=== PATIENT | female | born 1940 | race Caucasian/White ===

== ENCOUNTER → 2019-12-20 | Day surgery (SDC) | payer MEDICARE, OTHER ==
[2019-12-16 13:53] LABS: BASOPHILS # (AUTO) 0.1 (0.0-0.1); BASOPHILS % 0.9 % (0.0-1.0); EOSINOPHILS # (AUTO) 0.2 (0.0-0.4); EOSINOPHILS % 2.1 % (0.0-6.0); HEMATOCRIT 43.5 % (34.2-44.1); HEMOGLOBIN 13.7 g/dL (12.0-16.0); LYMPHOCYTES # (AUTO) 1.7 (1.0-3.2); LYMPHOCYTES % 19.5 % (18.0-39.1); MEAN CORPUSCULAR HEMOGLOBIN 30.2 pg (28-32); MEAN CORPUSCULAR HGB CONC 31.5 g/dL (31-35); MONOCYTES # (AUTO) 0.7 (0.2-0.8); MONOCYTES % 8.2 % (4.4-11.3); NEUTROPHILS # (AUTO) 5.9 (2.1-6.9); NEUTROPHILS % 69.1 % (38.7-80.0); PLATELET COUNT 339 x10e3/uL (140-360); RED BLOOD COUNT 4.53 x10e6/uL (3.6-5.1); RED CELL DISTRIBUTION WIDTH 14.3 % (11.7-14.4)
--- NOTE | 2019-12-16 14:43 | Diagnostic Imaging Report ---
X-ray chest PA and lateral History: Preop Comparison: None. Findings: Status post CABG procedure. Coronary artery stent visualized. Mediastinal contours otherwise unremarkable. Heart size normal. There is no pleural effusion or pneumothorax. There is left apical pleural thickening with hilar retraction. This raises the possibility of granulomatous disease. Lung husain show changes of COPD but no other focal disease. Visualized skeleton shows osteopenia. Upper abdomen unremarkable. Impression: No acute cardiopulmonary disease. Comparison with old studies to document stability of the left apical lung disease and hilar retraction. A CT of the chest may be performed for further evaluation. Signed by: Linwood Weber MD on 12/16/2019 2:39 PM
[~2019-12-20] MED LIST: ADVAIR 250-501 EACH PO; ATORVASTATIN CA20 MG PO; BUPIVACAINE HCL 0.5% INJ 30 ML VIAL INJ ONE; CEFAZOLIN SOD 1 GM/NS 50ML 100 ML IV ONE; DEXAMETHASONE SOD PHOS INJ 4 MG/ML VIAL ONE; EPHEDRINE SULFATE INJ 50 MG/ML VIAL ONE; FENTANYL CITRATE/PF 100MCG/2 ML INJ ONE; LIDOCAINE HCL 2% LOCAL INJ 5 ML SDV VIAL INJ ONE; LISINOPRIL10 MG PO; METOPROLOL SUCC25 MG PO; NEOSTIGMINE 1 MG/ML 10ML VIAL ONE; ONDANSETRON HCL INJ 2MG/ML 2ML 2 MG/ML VIAL ONE; PLAVIX75 MG PO; PROPOFOL IV EMULSION 10 MG/ML 20 ML VIAL ONE; SEVOFLURANE INHAL SOLN 250 ML PEN BTL ONE; TOPIRAMATE100 MG PO; [UNRECOGNIZED DRUG - OTHER] PO
--- OUTSIDE RECORDS SUMMARY | 2019-12-20 06:40 | XMS REPORT | Summary of Care ---
Author Organization Unknown Address Unknown Phone Unavailable Encounter HQ Maurilio(ASUNCION) [id number] Date(s): 03/15/14 - 03/15/14 [facility] [address] Discharge Disposition: Home Physician Attending: Candy Fierro MD Physician Admitting: Candy Fierro MD Reason for Visit XRAY Problem List Condition Effective Dates Status Health Status Informan t Anxiety(Confirmed) Active Cluster Active headache(Confirmed) COPD(Confirmed) Active Hypertension(Confirm Active ed) Low back Active pain(Confirmed) Lung Active cancer(Confirmed) Macular Active degeneration(Confirm ed) Stented coronary Active artery(Confirmed) Allergies, Adverse Reactions, Alerts Substance Reaction Severity Status NKDA Active Medications No data available for this section Medications Administered During Your Visit No data available for this section Immunizations No data available for this section Social History Social History Type Response Alcohol Use: Never Smoking Status Current every day smoker, T ype: Cigarettes, Exposure to Tobacco Smoke pt smokes, Cigarette Smoking Last 365 Days No, Reg Smoking Cessation Counseling No
--- OUTSIDE RECORDS SUMMARY | 2019-12-20 06:40 | XMS REPORT | Summary of Care ---
Author Author [facility] Outpatient Imaging - [facility] Organization [facility] Outpatient Imaging - [facility] Address Unknown Phone Unavailable Encounter HQ Maurilio(FIN) [id number] Date(s): 11/23/18 - 11/23/18 [facility] Outpatient Imaging - [address] [address] [phone] Discharge Disposition: Home or Self Care Attending Physician: Jw Freeman MD Referring Physician: Jw Freeman MD Vital Signs No data available for this section Problem List Condition Effective Dates Status Health Status Informan t Anxiety(Confirmed) Active Cluster Active headache(Confirmed) COPD(Confirmed) Active Low back Active pain(Confirmed) Lung Active cancer(Confirmed) Macular Active degeneration(Confirm ed) Stented coronary Active artery(Confirmed) Allergies, Adverse Reactions, Alerts Substance Reaction Severity Status NKDA Active Medications No data available for this section Results No data available for this section Immunizations No data available for this section Procedures Procedure Date Related Diagnosis Body Site Status Percutaneous coronary intervention1 11/14/13 Co mpleted Partial hysterectomy Completed Procedure on elbow joint Completed 1stenting of LAD Social History Social History Type Response Alcohol Never Smoking Status Former smoker; Exposure to Tobacco Smoke None; Cigarette Smoking Last 365 Days No; Reg Smoking Cessation Counseli ng No entered on: 11/19/15 Assessment and Plan No data available for this section
--- OUTSIDE RECORDS SUMMARY | 2019-12-20 06:40 | XMS REPORT | Summary of Care ---
Author Author [facility] Outpatient Imaging - [facility] Organization [facility] Outpatient Imaging - [facility] Address Unknown Phone Unavailable Encounter HQ Maurilio(FIN) [id number] Date(s): 07/25/15 - 07/25/15 [facility] Outpatient Imaging - [place] [address] [place] [address] [phone] Discharge Disposition: Home Attending Physician: Bridget Morgan MD Vital Signs No data available for [...] Procedures Procedure Date Related Diagnosis Body Site Percutaneous coronary intervention1 11/14/13 Partial hysterectomy Procedure on elbow joint 1stenting of LAD Social History Social History Type Response Alcohol Never Smoking Status Former smoker; Exposure to Tobacco Smoke None; Cigarette Smoking Last 365 Days No; Reg Smoking Cessation Counseli ng No Assessment and Plan No data available for this section
--- OUTSIDE RECORDS SUMMARY | 2019-12-20 06:40 | XMS REPORT | Summary of Care ---
Author Organization Unknown Address Unknown Phone Unavailable Encounter Dates Location Diagnoses Discharge Providers Disposition 10/17/2013 [facility] Outpatient Imaging - Home Bridget Blackmon [place] 10/17/[address] Reason for Visit 793.11 - SOLITARY PULMON Problem List No data available for this section Allergies, Adverse Reactions, Alerts No data available for this section Medications No data available for this section Medications Administered During Your Visit No data available for this section Immunizations No data available for this section
--- OUTSIDE RECORDS SUMMARY | 2019-12-20 06:40 | XMS REPORT | Summary of Care ---
Author Organization Unknown Address Unknown Phone Unavailable Encounter Dates Location Diagnoses Discharge Providers Disposition 10/07/2013 [facility] Outpatient Imaging - Home Bridget Blackmon [place] 10/07/[address] Reason for Visit 404 - HTN HRT/CHRON K Problem List No data available for this section Allergies, Adverse Reactions, Alerts No data available for this section Medications No data available for this section Medications Administered During Your Visit No data available for this section Immunizations No data available for this section
--- OUTSIDE RECORDS SUMMARY | 2019-12-20 06:40 | XMS REPORT | Summary of Care ---
Author Author [facility] Organization [facility] Address Unknown Phone Unavailable Encounter OLGA LIDIA Thorpe(ASUNCION) [id number] Date(s): 11/19/15 - 11/22/15 [facility] [address] [place] [address]- Discharge Disposition: Home Attending Physician: Jw Freeman MD Admitting Physician: Jw Freeman MD Vital Signs 1 2 3 Most recent to oldest [Reference Range]: 154.94 cm (11/19/15 11:12 PM) 154.94 cm (11/19/15 7:02 PM) Height 98.2 DegF (11/22/15 11:49 AM) 98.6 DegF (11/22/15 7:59 AM) 98.4 DegF (11/22/15 4:00 AM) Temperature Oral [96.4-99.1 DegF] 128/71 mmHg (11/22/15 11:49 AM) 130/63 mmHg (11/22/15 7:59 AM) 125/65 mmHg (11/22/15 4:00 AM) Blood Pressure [90-140/60-90 mmHg] 16 BRMIN (11/22/15 11:49 AM) 16 BRMIN (11/22/15 7:59 AM) 16 BRMIN (11/22/15 6:55 AM) Respiratory Rate [14-20 BRMIN] 94 bpm (11/22/15 11:49 AM) 104 bpm *HI* (11/22/15 7:59 AM) 101 bpm *HI* (11/22/15 4:00 AM) Peripheral Pulse Rate [60-100 bpm] 56.818 kg (11/19/15 11:12 PM) 56.818 kg (11/19/15 7:02 PM) Weight 23.67 m2 (11/19/15 11:12 PM) 23.67 m2 (11/19/15 7:02 PM) Body Mass Index Problem List Condition Effective Dates Status Health Status Informan t Anxiety(Confirmed) Active Cluster Active headache(Confirmed) COPD(Confirmed) Active Low back Active pain(Confirmed) Lung Active cancer(Confirmed) Macular Active degeneration(Confirm ed) Stented coronary Active artery(Confirmed) Allergies, Adverse Reactions, Alerts Substance Reaction Severity Status NKDA Active Medications Advair Diskus 250 mcg-50 mcg inhalation powder 1 inhalation, Route: INHALATION, Drug Form: AERO, Dosing Weight 56.818, kg, BID, Start date: 11/21/15 17:00:00 CDT, Duration: 30 day, Stop date: 12/21/15 9:00:00 CDT Notes: (Same as: Advair) Start Date: 11/21/15 Stop Date: 11/21/15 Status: Deleted Advair Diskus 250 mcg-50 mcg inhalation powder 1 puff, INHALATION, BID, # 1 ea, 3 Refill(s) Start Date: 11/20/15 Stop Date: 12/20/15 Status: Ordered albuterol 0.083% inhalation solution 2.49 mg, 3 mL, Route: NEB, Drug form: SOLN, Q15Min, Dosing Weight 56.818, kg, Pr iority: STAT, Start date: 11/19/15 20:08:00 CDT, Duration: 2 doses or times, Sto p date: 11/19/15 20:23:00 CDT Notes: SEE RT DOCUMENTATION (Same as: Proventil) Start Date: 11/19/15 Stop Date: 11/19/15 Status: Completed aspirin 81 mg tablet, enteric coated 81 mg = 1 tab, PO, Daily, # 90 tab, 3 Refill(s) Start Date: 11/20/15 Status: Ordered aspirin 81 mg tablet, enteric coated 81 mg, 1 tab, Route: PO, Drug form: ECTAB, Daily, Dosing Weight 56.818, kg, Star t date: 11/22/15 9:00:00 CDT, Duration: 30 day, Stop date: 12/21/15 9:00:00 CDT Notes: Do not crush or chew.(Same As: Ecotrin) Start Date: 11/22/15 Stop Date: 11/22/15 Status: Discontinued atorvastatin 20 mg oral tablet 20 mg = 1 tab, PO, Bedtime, # 90 tab, 3 Refill(s) Start Date: 11/20/15 Status: Ordered atropine 0.5 mg, 5 mL, Route: IVP, Drug form: INJ, PRN, Dosing Weight 56.818, kg, PRN Bra dycardia, Start date: 11/20/15 2:44:00 CDT, Duration: 30 day, Stop date: 6 2:43:00 CDT, symtaomaticbradycardia heart rate less than 40 Start Date: 11/20/15 Stop Date: 11/22/15 Status: Discontinued azithromycin + Sodium Chloride 0.9% IV 250 mL 500 mg, Route: IVPB, [id number], Dosing Weight 56.818, kg, Priority: Routine, Start date: 11/20/15 23:00:00 CDT, Duration: 3 day, Stop date: 11/22/15 23:00:00 CDT Notes: (Same As: Zithromax IV) Start Date: 11/20/15 Stop Date: 11/22/15 Status: Discontinued azithromycin + Sodium Chloride 0.9% IV 250 mL 500 mg, Route: IVPB, ONCE, Dosing Weight 56.818, kg, Priority: STAT, Start date: 11/19/15 20:35:00 CDT, Stop date: 11/19/15 20:35:00 CDT Notes: (Same As: Zithromax IV) Start Date: 11/19/15 Stop Date: 11/19/15 Status: Completed budesonide-formoterol 160 mcg-4.5 mcg/inh inhalation aerosol with adapter 2 inhalation, Route: INHALATION, Drug Form: AERO/A, RBID, Start date: 11/21/15 1 2:47:00 CDT, Duration: 30 day, Stop date: 12/21/15 8:00:00 CDT Notes: (Same as: Symbicort)WASTE: Aerosol - Return to Pharmacy Start Date: 11/21/15 Stop Date: 11/22/15 Status: Discontinued cefTRIAXone + Sodium Chloride 0.9% IV 100 mL 1 gm, Route: IVPB, [id number], Dosing Weight 56.818, kg, Priority: Routine, Start d ate: 11/20/15 22:00:00 CDT, Duration: 30 day, Stop date: 12/19/15 22:00:00 CDT Notes: (Same As: Rocephin).Use with 100 mL NS and infuse over 30 min MEDICA TION WASTE Product Size: 1000 mgProduct Wasted: ___ mg Start Date: 11/20/15 Stop Date: 11/22/15 Status: Discontinued cefTRIAXone + Sodium Chloride 0.9% IV 100 mL 1 gm, Route: IVPB, ONCE, Dosing Weight 56.818, kg, Priority: STAT, Start date: 0 11/19/15 20:36:00 CDT, Stop date: 11/19/15 20:36:00 CDT Notes: (Same As: Rocephin).Use with 100 mL NS and infuse over 30 min MEDICA TION WASTE Product Size: 1000 mgProduct Wasted: ___ mg Start Date: 11/19/15 Stop Date: 11/19/15 Status: Completed DuoNeb inhalation solution 3 ml, Route: NEB, Drug Form: SOLN, Dosing Weight 56.818, kg, PRN, PRN Respirator y Protocol, STAT, Start date: 11/19/15 20:08:00 CDT, Duration: 30 day, Stop date : 12/19/15 20:07:00 CDT Notes: (Same as: Duoneb) Start Date: 11/19/15 Stop Date: 11/22/15 Status: Discontinued heparin 5,000 unit, 1 mL, Route: SUB-Q, Drug form: INJ, [id number], Dosing Weight 56.818, kg, Start date: 11/21/15 13:00:00 CDT, Duration: 30 day, Stop date: 12/21/15 1:0 0:00 CDT Notes: porcine heparin Start Date: 11/21/15 Stop Date: 11/22/15 Status: Discontinued Levaquin 500 mg oral tablet 500 mg = 1 tab, PO, Q24H, X 7 day, # 7 tab, 0 Refill(s) Start Date: 11/22/15 Stop Date: 11/29/15 Status: Ordered lisinopril 20 mg, 1 tab, Route: PO, Drug form: TAB, Daily, Dosing Weight 56.818, kg, Start date: 11/22/15 9:00:00 CDT, Duration: 30 day, Stop date: 12/21/15 9:00:00 CDT Notes: (Same as: Prinivil, Zestril) Start Date: 11/22/15 Stop Date: 11/22/15 Status: Discontinued nitroglycerin 0.4 mg sublingual tablet 0.4 mg, 1 tab, Route: SL, Drug form: TAB, Q5Min, Dosing Weight 56.818, kg, PRN C hest Pain, Start date: 11/20/15 2:44:00 CDT, Duration: 30 day, Stop date: 2:43:00 CDT Notes: (Same as:Nitroquick, Nitrostat)"Do Not Crush" Sublingual tablet Start Date: 11/20/15 Stop Date: 11/22/15 Status: Discontinued ondansetron 4 mg, 2 mL, Route: IVP, Drug form: INJ, Q6H, Dosing Weight 56.818, kg, PRN Nause a & Vomiting, Start date: 11/19/15 23:03:00 CDT, Duration: 30 day, Stop date: 12/19/15 23:02:00 CDT Notes: (Same as: Esme) MEDICATION WASTE Product Size: 4 mgProduct Was dionicio: ___ mg Start Date: 11/19/15 Stop Date: 11/22/15 Status: Discontinued Plavix 75 mg, 1 tab, Route: PO, Drug form: TAB, Daily, Dosing Weight 56.818, kg, Start date: 11/22/15 9:00:00 CDT, Duration: 30 day, Stop date: 12/21/15 9:00:00 CDT Notes: (Same As: Plavix) Start Date: 11/22/15 Stop Date: 11/22/15 Status: Discontinued predniSONE 10 mg oral tablet See Special Instructions, PO, Daily, 12 day regimen: Days 1-4 - 30 mg (3 tabs) daily Days 5-8 - 20 mg (2 tabs) daily Days 9-12 - 10 mg (1 tab) daily, X 12 da y, # 24 tab, 0 Refill(s) Start Date: 11/22/15 Stop Date: 12/04/15 Status: Ordered Saline Flush 0.9% 10 mL, Route: IVP, Drug Form: INJ, Dosing Weight 49.091, kg, PRN, PRN Line Flush , Start date: 11/19/15 19:03:00 CDT, Duration: 30 day, Stop date: 12/19/15 19:02 :00 CDT Notes: (Same as: BD Posiflush) Start Date: 11/19/15 Stop Date: 11/22/15 Status: Discontinued Sodium Chloride 0.9% IV 1,000 mL 1,000 mL, Rate: 100 ml/hr, Infuse over: 10 hr, Route: IV, Dosing Weight 56.818 k g, Total Volume: 1,000, Start date: 11/19/15 20:56:00 CDT, Duration: 30 day, Sto p date: 12/19/15 20:55:00 CDT Start Date: 11/19/15 Stop Date: 11/21/15 Status: Discontinued topiramate 100 mg, 1 tab, Route: PO, Drug form: TAB, Daily, Dosing Weight 56.818, kg, Start date: 11/22/15 9:00:00 CDT, Duration: 30 day, Stop date: 12/21/15 9:00:00 CDT Notes: (Same As: Topamax)"Do Not Crush" Start Date: 11/22/15 Stop Date: 11/22/15 Status: Discontinued Toprol-XL 25 mg oral tablet, extended release 25 mg, 1 tab, Route: PO, Drug form: ERTAB, Daily, Start date: 11/22/15 9:00:00 C DT, Duration: 30 day, Stop date: 12/21/15 9:00:00 CDT Notes: (Same as: Toprol XL) Do Not Crush Start Date: 11/22/15 Stop Date: 11/22/15 Status: Discontinued Tylenol 650 mg, 2 tab, Route: PO, Drug form: TAB, ONCE, Dosing Weight 56.818, kg, Priori ty: STAT, Start date: 11/19/15 20:57:00 CDT, Stop date: 11/19/15 20:57:00 CDT Notes: Do not exceed 4 gm/day. (Same as: Tylenol) Start Date: 11/19/15 Stop Date: 11/19/15 Status: Completed Results ELECTROLYTES Most recent to 1 2 oldest [Reference Range]: Sodium Lvl [135-145 139 mEq/L 136 mEq/L mEq/L] (11/21/15 12:07 PM) (11/19/15 7:22 PM) Potassium Lvl 3.6 mEq/L 3.6 mEq/L [3.5-5.1 mEq/L] (11/21/15 12:07 PM) (11/19/15 7:22 PM) Chloride Lvl [95-109 111 mEq/L 108 mEq/L mEq/L] *HI* (11/19/15:22 PM) (11/21/15 12:07 PM) CO2 [24-32 mEq/L] 22 mEq/L 17 mEq/L *LOW* *LOW* (11/21/15 12:07 PM) (11/19/15 7:22 PM) AGAP [10.0-20.0 9.6 mEq/L 14.6 mEq/L mEq/L] *LOW* (11/19/15 7:22 PM) (11/21/15 12:07 PM) CHEM PANEL Most recent to 1 2 oldest [Reference Range]: Creatinine Lvl 0.69 mg/dL 0.92 mg/dL [0.50-1.40 mg/dL] (11/21/15 12:07 PM) (11/19/15 7:22 PM) eGFR 86 mL/min/1.73m2 1 61 mL/min/1.73m2 2 *NA* *NA* (11/21/15 12:07 PM) (11/19/15:22 PM) BUN [7-22 mg/dL] 12 mg/dL 18 mg/dL (11/21/15 12:07 PM) (11/19/15 7:22 PM) B/C Ratio [6-25] 20 (11/19/15 7:22 PM) Glucose Lvl [70-99 132 mg/dL 127 mg/dL mg/dL] *HI* *HI* (11/21/15 12:07 PM) (11/19/15 7:22 PM) Total Protein 7.3 g/dL [6.4-8.4 g/dL] (11/19/15 7:22 PM) Albumin Lvl [3.5-5.0 3.7 g/dL g/dL] (11/19/15 7:22 PM) Globulin [2.0-4.0 3.6 g/dL g/dL] (11/19/15 7:22 PM) A/G Ratio [0.7-1.6] 1.0 (11/19/15 7:22 PM) Calcium Lvl 7.5 mg/dL 8.4 mg/dL [8.5-10.5 mg/dL] *LOW* *LOW* (11/21/15 12:07 PM) (11/19/15 7:22 PM) ALT [0-65 unit/L] 21 unit/L (11/19/15 7:22 PM) AST [0-37 unit/L] 19 unit/L (11/19/15 7:22 PM) Alk Phos [39-136 80 unit/L unit/L] (11/19/15 7:22 PM) Bili Total [0.2-1.3 0.5 mg/dL mg/dL] (11/19/15 7:22 PM) Lactic Acid Lvl 1.5 mMol/L [0.5-2.2 mMol/L] (11/19/15 9:35 PM) 1Result Comment: The eGFR is calculated using the CKD-EPI formula. In most young, healthy individuals the eGFR will be >90 mL/min/1.73m2. The eGFR declines with age. An eGFR of 60-89 may be normal in some populations, particularly the elderly, for whom the CKD-EPI formula has not been extensively validated. Use of the eGFR is not recommended in the following populations: Individuals with unstable creatinine concentrations, including patients and those with serious co-morbid conditions. Patients with extremes in muscle mass or diet. The data above are obtained from the National Kidney Disease Education Program ( NKDEP) which additionally recommends that when the eGFR is used in patients with extremes of body mass index for purposes of drug dosing, the eGFR should be mul tiplied by the estimated BMI. 2Result Comment: The eGFR is calculated using the CKD-EPI formula. In most young, healthy individuals the eGFR will be >90 mL/min/1.73m2. The eGFR declines with age. An eGFR of 60-89 may be normal in some populations, particularly the elderly, for whom the CKD-EPI formula has not been extensively validated. Use of the eGFR is not recommended in the following populations: Individuals with unstable creatinine concentrations, including patients and those with serious co-morbid conditions. Patients with extremes in muscle mass or diet. The data above are obtained from the National Kidney Disease Education Program ( NKDEP) which additionally recommends that when the eGFR is used in patients with extremes of body mass index for purposes of drug dosing, the eGFR should be mul tiplied by the estimated BMI. CARDIAC ENZYMES Most recent to 1 2 oldest [Reference Range]: Total CK [12-191 94 unit/L unit/L] (11/19/15 7:22 PM) CK MB [0.5-3.6 0.8 ng/mL ng/mL] (11/19/15 7:22 PM) CK MB Index 0.9 [0.0-2.5] (11/19/15 7:22 PM) Troponin-I <0.02 ng/mL [0.00-0.40 ng/mL] (11/19/15 7:22 PM) BNP [<=100 pg/mL] 200 pg/mL *HI* (11/19/15 7:22 PM) URINE AND STOOL Most recent to 1 2 oldest [Reference Range]: UA Turbidity [Clear] Clear (11/20/15 9:11 PM) UA Color Ltyellow *NA* (11/20/15 9:11 PM) UA pH [5.0-8.0] 7.0 (11/20/15 9:11 PM) UA Spec Grav 1.014 [<=1.030] (11/20/15 9:11 PM) UA Glucose [Negative Negative mg/dL mg/dL] *NA* (11/20/15 9:11 PM) UA Blood [Negative] Negative (11/20/15 9:11 PM) UA Ketones [Negative Negative mg/dL mg/dL] *NA* (11/20/15 9:11 PM) UA Protein [Negative Negative mg/dL mg/dL] (11/20/15 9:11 PM) UA Urobilinogen 2.0 mg/dL [0.1-1.0 mg/dL] *HI* (11/20/15 9:11 PM) UA Bili [Negative] Negative *NA* (11/20/15 9:11 PM) UA Leuk Est Negative [Negative] (11/20/15 9:11 PM) UA Nitrite Negative [Negative] (11/20/15 9:11 PM) UA WBC [0-5 /HPF] 2 /HPF (11/20/15 9:11 PM) UA RBC [0-2 /HPF] 3 /HPF *HI* (11/20/15 9:11 PM) UA Bacteria [None Occasional /HPF Seen /HPF] *NA* (11/20/15 9:11 PM) UA Sq Epi [Few /LPF] Occasional /LPF *NA* (11/20/15 9:11 PM) HEMATOLOGY Most recent to 1 2 oldest [Reference Range]: WBC [3.7-10.4 K/CMM] 13.9 K/CMM 17.2 K/CMM *HI* *HI* (11/21/15 12:07 PM) (11/19/15 7:22 PM) RBC [4.20-5.40 3.83 M/CMM 4.68 M/CMM M/CMM] *LOW* (11/19/15 7:22 PM) (11/21/15 12:07 PM) Hgb [12.0-16.0 g/dL] 11.5 g/dL 14.1 g/dL *LOW* (11/19/15 7:22 PM) (11/21/15 12:07 PM) Hct [36.0-48.0 %] 35.7 % 43.2 % *LOW* (11/19/15 7:22 PM) (11/21/15 12:07 PM) MCV [80.0-98.0 fL] 93.2 fL 92.3 fL (11/21/15 12:07 PM) (11/19/15 7:22 PM) MCH [27.0-31.0 pg] 30.1 pg 30.0 pg (11/21/15 12:07 PM) (11/19/15 7:22 PM) MCHC [32.0-36.0 32.3 g/dL 32.5 g/dL g/dL] (11/21/15 12:07 PM) (11/19/15 7:22 PM) RDW [11.5-14.5 %] 14.0 % 13.5 % (11/21/15 12:07 PM) (11/19/15 7:22 PM) Platelet [133-450 262 K/CMM 299 K/CMM K/CMM] (11/21/15 12:07 PM) (11/19/15 7:22 PM) MPV [7.4-10.4 fL] 8.3 fL 8.3 fL (11/21/15 12:07 PM) (11/19/15 7:22 PM) Segs [45.0-75.0 %] 91.7 % *HI* (11/19/15 7:22 PM) Lymphocytes 2.5 % [20.0-40.0 %] *LOW* (11/19/15 7:22 PM) Monocytes [2.0-12.0 5.5 % %] (11/19/15 7:22 PM) Basophils [0.0-1.0 0.3 % %] (11/19/15 7:22 PM) Segs-Bands # 15.8 K/CMM [1.5-8.1 K/CMM] *HI* (11/19/15 7:22 PM) Lymphocytes # 0.4 K/CMM [1.0-5.5 K/CMM] *LOW* (11/19/15 7:22 PM) Monocytes # [0.0-0.8 0.9 K/CMM K/CMM] *HI* (11/19/15 7:22 PM) Basophils # [0.0-0.2 0.1 K/CMM K/CMM] (11/19/15 7:22 PM) PTT [22.9-35.8 31.7 seconds seconds] (11/21/15 12:07 PM) Immunizations No data available for this section [...]
--- OUTSIDE RECORDS SUMMARY | 2019-12-20 06:40 | XMS REPORT | Summary of Care ---
Author Author [facility] Outpatient Imaging - [facility] Organization [facility] Outpatient Imaging - [facility] Address Unknown Phone Unavailable Encounter HQ Maurilio(FIN) [id number] Date(s): 10/26/17 - 10/26/17 [facility] Outpatient Imaging - [place] [address] [place], [place] [address] [phone] Encounter Diagnosis Solitary pulmonary nodule (Final) - 11/06/17 Emphysema, unspecified (Final) - Other disorders of lung (Final) - Atherosclerotic heart disease of [place] coronary artery without angina pectoris (Final) - Discharge Disposition: Home or Self Care Attending Physician: Jw Freeman MD Vital Signs No [...]
--- OUTSIDE RECORDS SUMMARY | 2019-12-20 06:40 | XMS REPORT | Summary of Care ---
Author Organization Unknown Address Unknown Phone Unavailable Encounter HQ Maurilio([facility]) [id number] Date(s): 05/15/14 - 05/15/14 [facility] Outpatient Imaging - [address] [address] [place] Discharge Disposition: Home Physician Attending: Bridget Morgan MD Reason for Visit 496 - [facility] Problem List Condition Effective Dates Status Health [...]
--- OUTSIDE RECORDS SUMMARY | 2019-12-20 06:40 | XMS REPORT | Summary of Care ---
Author Author [facility] Organization [facility] Address Unknown Phone Unavailable Encounter [facility] Maur[facility](ASUNCION) [id number] Date(s): 12/11/18 - 12/12/18 [facility] [address] [place] [address]- Encounter Diagnosis Chronic obstructive pulmonary disease with (acute) exacerbation (Final) - Discharge Disposition: Home or Self Care Attending Physician: Parker Singh MD Admitting Physician: Parker Singh MD Referring Physician: Parker Singh MD Vital Signs 1 2 3 Most recent to oldest [Reference Range]: 154.94 cm (12/11/18 5:00 PM) Height 98.7 DegF (12/12/18 11:33 AM) 97.4 DegF (12/12/18 7:21 AM) 97.9 DegF (12/12/18 4:00 AM) Temperature Oral [96.4-99.1 DegF] 117/59 mmHg (12/12/18 11:33 AM) 116/67 mmHg (12/12/18 7:21 AM) 109/56 mmHg (12/12/18 4:00 AM) Blood Pressure [90-140/60-90 mmHg] 16 BRMIN (12/12/18 11:33 AM) 16 BRMIN (12/12/18 7:21 AM) 16 BRMIN (12/12/18 7:04 AM) Respiratory Rate [14-20 BRMIN] 76 bpm (12/12/18 11:33 AM) 85 bpm (12/12/18 7:21 AM) 79 bpm (12/12/18 4:00 AM) Peripheral Pulse Rate [60-100 bpm] 55.199 kg (12/11/18 5:00 PM) Weight 22.99 m2 (12/11/18 5:00 PM) Body Mass Index Problem List Condition Effective Dates Status Health Status Informan t Anxiety(Confirmed) Active Cluster Active headache(Confirmed) COPD(Confirmed) Active Low back Active pain(Confirmed) Lung Active cancer(Confirmed) Macular Active degeneration(Confirm ed) Stented coronary Active artery(Confirmed) Allergies, Adverse Reactions, Alerts No Known Medication Allergies Medications acetaminophen 650 mg, 2 tab, Route: PO, Drug form: TAB, Q4H, Dosing Weight 55.199, kg, PRN Lisa n 1-3/Temp > 100.4 F, Start date: 12/11/18 18:06:00 CDT, Duration: 30 day, Stop date: 01/10/19 18:05:00 CDT Notes: Do not exceed 4 gm/day. (Same as: Tylenol) Start Date: 12/11/18 Stop Date: 12/12/18 Status: Discontinued Advair Diskus 250 mcg-50 mcg inhalation powder 1 puff, Route: INHALATION, Drug Form: AERO, Dosing Weight 55.199, kg, BID, Start date: 12/12/18 9:00:00 CDT, Duration: 30 day, Stop date: 01/10/19 17:00:00 CDT Start Date: 12/12/18 Stop Date: 12/12/18 Status: Discontinued albuterol 2.49 mg, 3 mL, Route: NEB, Drug form: SOLN, RQID, Start date: 12/12/18 11:00:00 CDT, Duration: 30 day, Stop date: 01/11/19 7:00:00 CDT Notes: SEE RT DOCUMENTATION (Same as: Opaltil) Start Date: 12/12/18 Stop Date: 12/12/18 Status: Discontinued albuterol 0.083% inhalation solution 2.49 mg = 3 mL, NEB, Q6H, PRN as needed for shortness of breath, # 30 ea, 0 Refi ll(s), Pharmacy: [facility] [id number] Start Date: 12/12/18 Status: Ordered albuterol-ipratropium 2.5-0.5 mg inhalation solution 3 mL, Route: NEB, Drug Form: SOLN, Dosing Weight 55.199, kg, RQID, Start date: 0 12/11/18 19:00:00 CDT, Duration: 30 day, Stop date: 01/10/19 15:00:00 CDT Notes: (Same as: Duoneb) Start Date: 12/11/18 Stop Date: 12/12/18 Status: Discontinued aspirin 81 mg tablet, enteric coated 81 mg, 1 tab, Route: PO, Drug form: ECTAB, Daily, Dosing Weight 55.199, kg, Star t date: 12/12/18 9:00:00 CDT, Duration: 30 day, Stop date: 01/10/19 9:00:00 CDT Notes: Do not crush or chew.(Same As: Ecotrin) Start Date: 12/12/18 Stop Date: 12/12/18 Status: Discontinued atorvastatin 20 mg, 2 tab, Route: PO, Drug form: TAB, Bedtime, Dosing Weight 55.199, kg, Star t date: 12/12/18 21:00:00 CDT, Duration: 30 day, Stop date: 01/10/19 21:00:00 CD T Notes: (Same As: Lipitor) Start Date: 12/12/18 Stop Date: 12/12/18 Status: Canceled azithromycin 250 mg, 1 tab, Route: PO, Drug form: TAB, [id number], Dosing Weight 55.199, kg, Sta rt date: 12/11/18 19:00:00 CDT, Duration: 4 doses or times, Stop date: 12/14/18 19:00:00 CDT, ABX Indication: Non-PNA Respiratory Tract Infection Notes: Take 1 hour before or 2 hours after meals.(Same As: Zithromax) Start Date: 12/11/18 Stop Date: 12/12/18 Status: Discontinued cefTRIAXone + sterile water 10 mL 1 gm, Route: IVP, [id number], Dosing Weight 55.199, kg, Start date: 12/11/18 19:00: 00 CDT, Duration: 5 day, Stop date: 12/15/18 19:00:00 CDT, ABX Indication: Non-P NA Respiratory Tract Infection Notes: (Same As: Rocephin).Use with 100 mL NS and infuse over 30 min MEDICA TION WASTE Product Size: 1000 mgProduct Wasted: ___ mg Start Date: 12/11/18 Stop Date: 12/12/18 Status: Discontinued Dextrose 50% Syringe 12.5 gm, 25 mL, Route: IVP, Drug Form: INJ, Dosing Weight 55.199, kg, PRN, PRN B lood Glucose Results, Start date: 12/11/18 18:06:00 CDT, Duration: 30 day, Stop date: 01/10/19 18:05:00 CDT Start Date: 12/11/18 Stop Date: 12/12/18 Status: Discontinued Dextrose 50% Syringe 25 gm, 50 mL, Route: IVP, Drug Form: INJ, Dosing Weight 55.199, kg, PRN, PRN Blo od Glucose Results, Start date: 12/11/18 18:06:00 CDT, Duration: 30 day, Stop da te: 01/10/19 18:05:00 CDT Start Date: 12/11/18 Stop Date: 12/12/18 Status: Discontinued glucagon 1 mg, Route: IM, Drug form: PDR/INJ, PRN, Dosing Weight 55.199, kg, PRN Blood Gl ucose Results, Start date: 12/11/18 18:06:00 CDT, Duration: 30 day, Stop date: 0 01/10/19 18:05:00 CDT Start Date: 12/11/18 Stop Date: 12/12/18 Status: Discontinued guaiFENesin 600 mg, 1 tab, Route: PO, Drug form: ERTAB, Q12H, Dosing Weight 55.199, kg, Star t date: 12/11/18 21:00:00 CDT, Duration: 30 day, Stop date: 01/10/19 9:00:00 CDT Notes: (Same as: Guaifenesin LA, Humibid LA, Mucinex)"Do Not Crush" Take medica tion with plenty of water. Start Date: 12/11/18 Stop Date: 12/12/18 Status: Discontinued Levaquin 500 mg oral tablet 500 mg = 1 tab, PO, Q24H, X 4 day, # 4 tab, 0 Refill(s), Pharmacy: [id number] Start Date: 12/12/18 Stop Date: 12/16/18 Status: Ordered lisinopril 20 mg, 1 tab, Route: PO, Drug form: TAB, Daily, Dosing Weight 55.199, kg, Start date: 12/12/18 9:00:00 CDT, Duration: 30 day, Stop date: 01/10/19 9:00:00 CDT Notes: (Same as: Prinivil, Zestril) Start Date: 12/12/18 Stop Date: 12/12/18 Status: Discontinued Lovenox 40 mg, 0.4 mL, Route: SUB-Q, Drug form: INJ, [id number], Dosing Weight 55.199, kg, Start date: 12/11/18 19:00:00 CDT, Duration: 30 day, Stop date: 01/09/19 19:00: 00 CDT Notes: (Same as: Lovenox) Start Date: 12/11/18 Stop Date: 12/12/18 Status: Discontinued methylPREDNISolone SODium SUCCinate 40 mg, 1 mL, Route: IVP, Drug form: INJ, Q8H, Dosing Weight 55.199, kg, Start da te: 12/12/18 0:00:00 CDT, Duration: 5 day, Stop date: 12/16/18 16:00:00 CDT Notes: (Same as:Solu-MEDROL, A-Methapred) Start Date: 12/12/18 Stop Date: 12/12/18 Status: Discontinued Nebulizer Misc/Other 1 ea, MISC, PRN, PRN As directed by physician, Please use albuterol as needed as directed, # 1 ea, 0 Refill(s), Pharmacy: [facility] [id number] Start Date: 12/12/18 Status: Ordered ondansetron 4 mg, 2 mL, Route: IVP, Drug form: INJ, Q8H, Dosing Weight 55.199, kg, PRN Nause a & Vomiting, Start date: 12/11/18 18:06:00 CDT, Duration: 30 day, Stop date: 01/10/19 18:05:00 CDT Notes: (Same as: Zofran) MEDICATION WASTE Product Size: 4 mgProduct Was dionicio: ___ mg Start Date: 12/11/18 Stop Date: 12/12/18 Status: Discontinued Plavix 75 mg, 1 tab, Route: PO, Drug form: TAB, Daily, Dosing Weight 55.199, kg, Start date: 12/12/18 9:00:00 CDT, Duration: 30 day, Stop date: 01/10/19 9:00:00 CDT Notes: (Same As: Plavix) Start Date: 12/12/18 Stop Date: 12/12/18 Status: Discontinued predniSONE 20 mg oral tablet 40 mg = 2 tab, PO, Daily, X 5 day, # 10 tab, 0 Refill(s), Pharmacy: [facility] [id number] Start Date: 12/13/18 Stop Date: 12/18/18 Status: Ordered ProAir HFA 90 mcg/inh inhalation aerosol with adapter 90 microgram = 1 puff, INHALATION, Q6H, PRN as needed for wheezing, # 9 gm, 0 Re fill(s), Pharmacy: [facility] [id number] Start Date: 12/12/18 Status: Ordered Protonix 40 mg, 1 tab, Route: PO, Drug form: ECTAB, Before Breakfast, Dosing Weight 55.19 9, kg, Start date: 12/12/18 7:30:00 CDT, Duration: 30 day, Stop date: 01/10/19 7 :30:00 CDT Notes: Tablet should not be chewed or crushed.(Same as: Protonix) Start Date: 12/12/18 Stop Date: 12/12/18 Status: Discontinued Pulmicort Respules 0.5 mg, 2 mL, Route: NEB, Drug form: SUSP, RBID, Start date: 12/12/18 8:31:00 CD T, Duration: 30 day, Stop date: 01/11/19 8:00:00 CDT Notes: (Same As: Pulmicort) Start Date: 12/12/18 Stop Date: 12/12/18 Status: Discontinued Tessalon Perles 100 mg, 1 cap, Route: PO, Drug form: CAP, TID, Dosing Weight 55.199, kg, PRN Cou gh, Start date: 12/11/18 19:39:00 CDT, Duration: 30 day, Stop date: 01/10/19 19: 38:00 CDT Notes: (Same As: Tessalon Perles)"Do Not Crush" Start Date: 12/11/18 Stop Date: 12/12/18 Status: Discontinued tizanidine 2 mg, 0.5 tab, Route: PO, Drug form: TAB, Daily, Dosing Weight 55.199, kg, PRN M uscle Spasms, Start date: 12/12/18 10:31:00 CDT, Duration: 30 day, Stop date: 10:30:00 CDT Notes: (Same As: Zanaflex) Start Date: 12/12/18 Stop Date: 12/12/18 Status: Discontinued tizanidine 2 mg, 0.5 tab, Route: PO, Drug form: TAB, Daily, Dosing Weight 55.199, kg, Start date: 12/12/18 9:00:00 CDT, Duration: 30 day, Stop date: 01/10/19 9:00:00 CDT Notes: (Same As: Zanaflex) Start Date: 12/12/18 Stop Date: 12/12/18 Status: Discontinued tizanidine 2 mg oral capsule 2 mg = 1 cap, PO, Daily, 0 Refill(s) Start Date: 12/11/18 Status: Ordered topiramate 100 mg, 1 tab, Route: PO, Drug form: TAB, Daily, Dosing Weight 55.199, kg, Start date: 12/12/18 9:00:00 CDT, Duration: 30 day, Stop date: 01/10/19 9:00:00 CDT Notes: (Same As: Topamax)"Do Not Crush" Start Date: 12/12/18 Stop Date: 12/12/18 Status: Discontinued Toprol-XL 25 mg oral tablet, extended release 25 mg, 1 tab, Route: PO, Drug form: ERTAB, Daily, Start date: 12/12/18 9:00:00 C DT, Duration: 30 day, Stop date: 01/10/19 9:00:00 CDT Notes: (Same as: Toprol XL) Do Not Crush Start Date: 12/12/18 Stop Date: 12/12/18 Status: Discontinued Results Most recent to 1 oldest [Reference Range]: Neutrophils # 12.6 K/CMM [1.5-8.1 K/CMM] *HI* (12/12/18 5:37 AM) Lymphocytes # 0.6 K/CMM [1.0-5.5 K/CMM] *LOW* (12/12/18 5:37 AM) Monocytes # [0.0-0.8 0.3 K/CMM K/CMM] (12/12/18 5:37 AM) eGFR 62 mL/min/1.73m2 1 *NA* (12/12/18:37 AM) AGAP [10.0-20.0 11.6 mEq/L mEq/L] (12/12/18:37 AM) Basophils [0.0-1.0 0.1 % %] (12/12/18 5:37 AM) BUN [7-22 mg/dL] 17 mg/dL (12/12/18 5:37 AM) Calcium Lvl 8.9 mg/dL [8.5-10.5 mg/dL] (12/12/18 5:37 AM) Chloride Lvl [95-109 114 mEq/L mEq/L] *HI* (12/12/18:37 AM) CO2 [24-32 mEq/L] 17 mEq/L *LOW* (12/12/18:37 AM) Creatinine Lvl 0.90 mg/dL [0.50-1.40 mg/dL] (12/12/18 5:37 AM) Glucose Lvl [70-99 178 mg/dL mg/dL] *HI* (12/12/18:37 AM) Hct [36.0-48.0 %] 38.5 % (12/12/18 5:37 AM) Hgb [12.0-16.0 g/dL] 12.7 g/dL (12/12/18:37 AM) Potassium Lvl 3.6 mEq/L [3.5-5.1 mEq/L] (12/12/18:37 AM) Lymphocytes 4.4 % [20.0-40.0 %] *LOW* (12/12/18 5:37 AM) MCH [27.0-31.0 pg] 31.2 pg *HI* (12/12/18 5:37 AM) MCHC [32.0-36.0 33.0 g/dL g/dL] (12/12/18 5:37 AM) MCV [80.0-98.0 fL] 94.5 fL (12/12/18 5:37 AM) Monocytes [2.0-12.0 2.4 % %] (12/12/18 5:37 AM) MPV [7.4-10.4 fL] 9.0 fL (12/12/18 5:37 AM) Sodium Lvl [135-145 139 mEq/L mEq/L] (12/12/18 5:37 AM) Platelet [133-450 313 K/CMM K/CMM] (12/12/18 5:37 AM) Segs [45.0-75.0 %] 93.1 % *HI* (12/12/18 5:37 AM) RBC [4.20-5.40 4.08 M/CMM M/CMM] *LOW* (12/12/18 5:37 AM) RDW [11.5-14.5 %] 14.2 % (12/12/18 5:37 AM) WBC [3.7-10.4 K/CMM] 13.5 K/CMM *HI* (12/12/18 5:37 AM) 1Result Comment: The eGFR is calculated using [...] be mul tiplied by the estimated BMI. Immunizations Given and Recorded Vaccine Date Status Refusal Reason pneumococcal 13-valent vaccine 12/12/18 Given Procedures Procedure Date Related Diagnosis Body Site Status Percutaneous coronary intervention1 11/14/13 Co mpleted Partial hysterectomy Completed Procedure on elbow joint Completed enting of LAD Social History Social History Type Response Alcohol Current, Type Liquor. Freq uency: 3-5 times per week. Last use: 12/08/18. Previous treatment: None. Alcohol use interferes with work or home: No. Drinks more than intended: No. Others hurt by drinking: No. Ready to change: No. Household alcohol concerns : No. Smoking Status Former smoker; Exposure to Tobacco Smoke None; Cigarette Smoking Last 365 Days No; Reg Smoking Cessation Counseli marcelo No entered on: 12/11/18 Assessment and Plan Extracted from: Title: General Admission H&P * Author: Johnny Cunha hnakant Date: 12/11/18 MD Impression and Plan 78-year-old female with a past medical h istory of lung cancer status post lobectomy, COPD, coronary artery disease status post stent presented to ER with shortness of breath and cough. Impression: COPD with acute exacerbation possibly secondary to acute bronchitis Possible acute bronchitis History of lung cancer status post lobectomy Coronary disease status post stent Leukocytosis Plan: We will admit to medicine Activity as tolerated Vitals as per unit policy Repeat labs in a.m. Diet heart healthy Continue telemetry for now as I will reconcile home medication when available. We will start on IV steroids We will start on IV Rocephin and Zithromax We will place will place patient on DuoNeb nebs. Continue oxygen support and wean off oxygen as able. Continue supportive care including antiemetics and Tylenol as needed for fever. Monitor for any hemodynamic instability. If patient condition gets worse patient may be related to IMCU or ICU. We will also get pulmonary evaluation.
--- OUTSIDE RECORDS SUMMARY | 2019-12-20 06:40 | XMS REPORT | Summary of Care ---
Author Organization Unknown Address Unknown Phone Unavailable Encounter [facility](ASUNCION) [id number] Date(s): 06/21/14 - 06/21/14 [facility] [address] Discharge Disposition: Home Physician Attending: Candy Fierro MD Physician Admitting: Candy Fierro MD Reason for Visit 162.9 Problem List Condition Effective Dates Status Health [...]
--- OUTSIDE RECORDS SUMMARY | 2019-12-20 06:40 | XMS REPORT | Summary of Care ---
Author Author [facility] Organization [facility] Address Unknown Phone Unavailable Encounter [facility] Maurilio(FIN) [id number] Date(s): 08/18/15 - 08/18/15 [facility] [address] [place] [address]- [phone] Discharge Disposition: Home Attending Physician: Jw Freeman MD Referring Physician: [...]
--- OUTSIDE RECORDS SUMMARY | 2019-12-20 06:40 | XMS REPORT | Summary of Care ---
Author Organization Unknown Address Unknown Phone Unavailable Encounter [facility](ASUNCION) [id number] Date(s): 08/24/14 - 08/25/[address] [facility] [address] [address] Discharge Disposition: Home Physician Attending: Nighat Stearns MD Physician Admitting: Nighat Stearns MD Physician_Referring: Nighat Stearns MD Reason for Visit 414.01 Vital Signs 1 2 3 Most recent to oldest [Reference Range]: 154.94 cm (08/24/14 5:26 PM) Height 97.9 DegF (08/25/14 8:00 AM) 98.3 DegF (08/25/14 4:00 AM) 97.8 DegF (08/25/14 12:00 AM) Temperature Oral [96.4-99.1 DegF] 131 mmHg (08/25/14 8:00 AM) 132 mmHg (08/25/14 4:00 AM) 130 mmHg (08/25/14 12:00 AM) Systolic Blood Pressure [90-140 mmHg] 54 mmHg *LOW* (08/25/14 8:00 AM) 64 mmHg (08/25/14 4:00 AM) 54 mmHg *LOW* (08/25/14 12:00 AM) Diastolic Blood Pressure [60-90 mmHg] 20 BRMIN (08/25/14 8:00 AM) 20 BRMIN (08/25/14 4:00 AM) 20 BRMIN (08/25/14 12:00 AM) Respiratory Rate [14-20 BRMIN] 64 bpm (08/25/14 8:00 AM) Peripheral Pulse Rate [60-100 bpm] 49.091 kg (08/24/14 5:26 PM) Weight 20.45 m2 (08/24/14 5:26 PM) Body Mass Index Problem List Condition Effective Dates Status Health Status Informan t Anxiety(Confirmed) Active Cluster Active headache(Confirmed) COPD(Confirmed) Active Hypertension(Confirm Active ed) Low back Active pain(Confirmed) Lung Active cancer(Confirmed) Macular Active degeneration(Confirm ed) Stented coronary Active artery(Confirmed) Allergies, Adverse Reactions, Alerts Substance Reaction Severity Status NKDA Active Medications acetaminophen-hydrocodone 325 mg-5 mg oral tablet 1 tab, Route: PO, Drug Form: TAB, Dosing Weight 54.9, kg, Q4H, PRN Pain Score 1- 5, Start date: 08/24/14 9:40:00, Duration: 30 day, Stop date: 09/23/14 9:39:00 Notes: (Same as: [place] 325/5) Do not exceed 4gm/day of acetaminophen. Start Date: 08/24/14 Stop Date: 08/25/14 Status: Discontinued Advair Diskus 250 mcg-50 mcg inhalation powder 1 puff, Route: INHALATION, Drug Form: AERO, Dosing Weight 54.9, kg, BID, Start d ate: 08/24/14 17:00:00, Duration: 30 day, Stop date: 09/23/14 9:00:00 Start Date: 08/24/14 Stop Date: 08/24/14 Status: Deleted aspirin 81 mg tablet, enteric coated 81 mg, 1 tab, Route: PO, Drug form: ECTAB, Daily, Dosing Weight 54.9, kg, Start date: 08/24/14 17:28:00, Duration: 30 day, Stop date: 09/23/14 9:00:00 Notes: Do not crush or chew.(Same As: Ecotrin) Start Date: 08/24/14 Stop Date: 08/25/14 Status: Discontinued aspirin 81 mg tablet, enteric coated 81 mg = 1 tab, PO, Daily, # 30 tab, 0 Refill(s) Start Date: 08/25/14 Status: Ordered atorvastatin 20 mg, 2 tab, Route: PO, Drug form: TAB, Bedtime, Dosing Weight 54.9, kg, Start date: 08/24/14 21:00:00, Duration: 30 day, Stop date: 09/22/14 21:00:00 Notes: (Same As: Lipitor) Start Date: 08/24/14 Stop Date: 08/25/14 Status: Discontinued atorvastatin 10 mg oral tablet 20 mg = 2 tab, PO, Bedtime, # 30 tab, 0 Refill(s) Start Date: 08/25/14 Status: Ordered atorvastatin 20 mg oral tablet 20 mg = 1 tab, PO, Bedtime, # 30 tab, 0 Refill(s) Start Date: 08/25/14 Status: Ordered atropine 0.5 mg, 5 mL, Route: IVP, Drug form: INJ, PRN, PRN Bradycardia, Start date: 08/10 12/22 15:30:00, Duration: 30 day, Stop date: 09/23/14 15:29:00 Start Date: 08/24/14 Stop Date: 08/25/14 Status: Discontinued budesonide-formoterol 160 mcg-4.5 mcg/inh inhalation aerosol with adapter 2 inhalation, Route: INHALATION, Drug Form: AERO/A, BID, Start date: 08/24/14 21 :00:00, Duration: 30 day, Stop date: 09/23/14 17:00:00 Notes: (Same as: Symbicort) Start Date: 08/24/14 Stop Date: 08/25/14 Status: Discontinued clopidogrel 75 mg oral tablet 75 mg = 1 tab, PO, Daily, # 30 tab, 0 Refill(s) Start Date: 08/25/14 Status: Ordered diphenhydrAMINE 25 mg, 1 tab, Route: PO, Drug form: TAB, Bedtime, Dosing Weight 54.9, kg, PRN In somnia, Start date: 08/24/14 9:40:00, Duration: 30 day, Stop date: 09/23/14 9:39 :00 Start Date: 08/24/14 Stop Date: 08/25/14 Status: Discontinued famotidine 20 mg, 1 tab, Route: PO, Drug form: TAB, Q24H, Dosing Weight 54.9, kg, Start ga e: 08/24/14 21:00:00, Duration: 30 day, Stop date: 09/22/14 21:00:00 Notes: (Same as: Pepcid) Start Date: 08/24/14 Stop Date: 08/25/14 Status: Discontinued lisinopril 20 mg, 1 tab, Route: PO, Drug form: TAB, Daily, Dosing Weight 54.9, kg, Start da te: 08/25/14 9:00:00, Duration: 30 day, Stop date: 09/23/14 9:00:00 Notes: (Same as: Prinivil, Zestril) Start Date: 08/25/14 Stop Date: 08/25/14 Status: Discontinued lisinopril 20 mg oral tablet 20 mg = 1 tab, PO, Daily, # 30 tab, 0 Refill(s) Start Date: 08/24/14 Status: Suspended lisinopril 20 mg oral tablet 20 mg = 1 tab, PO, Daily, # 30 tab, 0 Refill(s) Start Date: 08/25/14 Status: Ordered nitroglycerin 0.4 mg sublingual tablet 0.4 mg, 1 tab, Route: SL, Drug form: TAB, Q5Min, PRN Chest Pain, Start date: 15:31:00, Duration: 30 day, Stop date: 09/23/14 15:30:00 Notes: (Same as:Nitroquick, Nitrostat)"Do Not Crush" Sublingual tablet Start Date: 08/24/14 Stop Date: 08/25/14 Status: Discontinued ondansetron 4 mg, 1 tab, Route: PO, Drug form: TAB, Q8H, Dosing Weight 54.9, kg, PRN Nausea & Vomiting, Start date: 08/24/14 9:40:00, Duration: 30 day, Stop date: 09/23/14 9:39:00 Notes: (Same as: Zofran) Start Date: 08/24/14 Stop Date: 08/25/14 Status: Discontinued Plavix 75 mg, 1 tab, Route: PO, Drug form: TAB, Daily, Dosing Weight 54.9, kg, Start da te: 08/25/14 9:00:00, Duration: 30 day, Stop date: 09/23/14 9:00:00 Notes: (Same As: Plavix) Start Date: 08/25/14 Stop Date: 08/25/14 Status: Discontinued Saline Flush 0.9% 5 ml, Route: IVP, Drug Form: INJ, Dosing Weight 54.9, kg, PRN, PRN Line Flush, S tart date: 08/24/14 9:40:00, Duration: 30 day, Stop date: 09/23/14 9:39:00 Notes: Same as: BD Posiflush Sterile Start Date: 08/24/14 Stop Date: 08/25/14 Status: Discontinued Saline Flush 0.9% 5 ml, Route: IVP, Drug Form: INJ, Dosing Weight 54.9, kg, Q12H, Start date: 08/10 12/22 21:00:00, Duration: 30 day, Stop date: 09/23/14 9:00:00 Notes: Same as: BD Posiflush Sterile Start Date: 08/24/14 Stop Date: 08/25/14 Status: Discontinued Sodium Chloride 0.9% IV 1,000 mL 1,000 mL, Rate: 1000 ml/hr, Infuse over: 1 hr, Route: IV, Dosing Weight 54.9 kg, Total Volume: 1,000, Start date: 08/24/14 12:53:00, Duration: 1 doses or times, Stop date: 08/24/14 13:52:00 Start Date: 08/24/14 Stop Date: 08/24/14 Status: Completed temazepam 15 mg, 1 cap, Route: PO, Drug form: CAP, Bedtime, Dosing Weight 54.9, kg, PRN In somnia, Start date: 08/24/14 9:40:00, Duration: 30 day, Stop date: 09/23/14 9:39 :00 Notes: (Same As: Restoril) Start Date: 08/24/14 Stop Date: 08/25/14 Status: Discontinued topiramate 100 mg, 1 tab, Route: PO, Drug form: TAB, Daily, Dosing Weight 54.9, kg, Start d ate: 08/25/14 9:00:00, Duration: 30 day, Stop date: 09/23/14 9:00:00 Notes: (Same As: Topamax)"Do Not Crush" Start Date: 08/25/14 Stop Date: 08/25/14 Status: Discontinued Toprol-XL 25 mg oral tablet, extended release 25 mg, 1 tab, Route: PO, Drug form: ERTAB, Daily, Start date: 08/25/14 9:00:00, Duration: 30 day, Stop date: 09/23/14 9:00:00 Notes: (Same as: Toprol XL) Do Not Crush Start Date: 08/25/14 Stop Date: 08/25/14 Status: Discontinued Toprol-XL 25 mg oral tablet, extended release 25 mg = 1 tab, PO, Daily, # 30 tab, 0 Refill(s) Start Date: 08/25/14 Status: Ordered Zofran 4 mg, 2 mL, Route: IVP, Drug form: INJ, Q8H, PRN Nausea & Vomiting, Start date: 08/24/14 12:54:00, Duration: 30 day, Stop date: 09/23/14 12:53:00 Notes: (Same as: Zofran) Start Date: 08/24/14 Stop Date: 08/25/14 Status: Discontinued Medications Administered During Your Visit No data available for this section Immunizations No data available for this section Social History Social History Type Response Alcohol Use: Never Smoking Status Former smoker, Exposure to Tobacco Smoke None, Cigarette Smoking Last 365 Days No, Reg Smoking Cessation Counseli marcelo No
--- OUTSIDE RECORDS SUMMARY | 2019-12-20 06:40 | XMS REPORT | Summary of Care ---
Author Author [facility] Outpatient [facility] - [facility] Organization [facility] Address Unknown Phone Unavailable Encounter [facility](FIN) [id number] Date(s): 10/23/16 - 10/23/16 [facility] Outpatient Imaging - [place] [address] [place] [address] [phone] Discharge Disposition: Home or Self Care Attending [...]
--- OUTSIDE RECORDS SUMMARY | 2019-12-20 06:40 | XMS REPORT ---
Author Author JOHNNIE Carolina Lil edilberto Organization Unknown Address Unknown Phone Care Team Providers Care Sorter Pricer Name Role Phone Barbie Carolina PP Reason for Referral No Reason for Referral was given. History of Present Illness No HPI available. Problems * Normal Routine History And Physical Senior Citizen (65-80) (V70.0); ( Active) * Lung Cancer (162.9); (Active) Medication * Lisinopril 10 MG Oral Tablet (Active) * Topiramate 100 MG Oral Tablet (Active) * Advair Diskus AEPB (Active) * Imitrex TABS (Active) Allergies and Adverse Reactions * No Known Allergies (Active) Past Medical History * History of Hyperthyroidism (242.90); (Resolved) * History of Chronic Obstructive Pulmonary Disease (496); (Resolved) * History of Asthma (493.90); (Resolved) Procedures Procedure Procedure Date Date Completed Status Elbow Surgery Repair - - Resolved Hysterectomy - - Resolved Family History * No Family history of Family Health Status (Denied) Social History * Smoking Cigarettes For 60 Pack-years (305.1); (Active) * Current Every Day Smoker (305.1); (Active) * No History of Alcohol Use (Denied) * No History of Drug Use (Denied) Advance Directives * No Advance Directives available. Encounters * AUDIT 11/03/2013
--- OUTSIDE RECORDS SUMMARY | 2019-12-20 06:40 | XMS REPORT | Summary of Care ---
Author Organization Unknown Address Unknown Phone Unavailable Encounter [facility]) [id number] Date(s): 09/11/14 - 09/11/14 [facility] Outpatient Imaging - [address] [address]- [place] Discharge Disposition: Home Physician Attending: Jw Freeman MD Reason for Visit 496 - CHR [...] 365 Days No, Reg Smoking Cessation Counseli ng No
--- OUTSIDE RECORDS SUMMARY | 2019-12-20 06:40 | XMS REPORT | Summary of Care ---
Author Author [facility] Organization [facility] Address Unknown Phone Unavailable Encounter OLGA LIDIA Thorpe([facility]) [id number] Date(s): 11/19/15 - 11/19/15 [facility] [address] [place] [address]- Discharge Disposition: Home Attending Physician: Jw Freeman [...]
--- OUTSIDE RECORDS SUMMARY | 2019-12-20 06:40 | XMS REPORT | Continuity of Care Document ---
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 J44.1 - CHRONIC OBSTRUCTIVE PULMONARY Active 11/11/2018 [facility] Chronic obstructive pulmonary disease, unspecified 02/28/2018 09/12/2018 [facility] Solitary pulmonary nodule 11/07/2017 02/01/2018 [facility] SHORTNESS OF BREATH Active 11/19/2015 [facility] PNEUMONIA Active 11/19/2015 [facility] R91.1=SOLITARY PULMONARY NODULE Active 11/13/2015 [facility] LUNG CA C34.90 Active 08/15/2015 [facility] R04.2 - HEMOPTYSIS I10 - ESSENTIAL (PRIM Active 07/24/2015 [facility] 414.01 Active 08/14/2014 [facility] 496 - CHR AIRWAY OBST Active 05/15/2014 [facility] 786.05 Active 11/09/2013 [facility] 162.9/98873/75605/67519 Active 11/03/2013 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xiety (finding) Active Problem 12/14/2018 [facility]JANDRA [place]anadenshyann [place] Cluster headache syndrome (disorder) Active Problem 02/2019 [facility]DRA [facility] [place] Chronic obstructive lung disease (disorder) Active Problem 12/14/2018 ALEJANDRA Hobson Shey Low back pain (disorder) Active Problem 12/14/2018 [facility]DRA [place], [place] Malignant tumor of lung (disorder) Active Problem 02/2019 ALEJANDRA Hobson, [place] Stented coronary artery (finding) Active Problem 02/2019 ALEJANDRA Hobson, [place] Degenerative disorder of macula (disorder) Active Problem 12/14/2018 ALEJANDRA Hobson, [place] Cough 09/12/2018 ALEJANDRA Hobson Chronic obstructive pulmonary disease wi th (acute) exacerbation 12/14/2018 [facility] Lung Cancer Active 11/03/2013 [facility] SHORTNESS OF BREATH Active [facility] XRAY Active [facility] MAL FRIEDA BRONCH/LUNG NOS Active [facility] 162.9 Active 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 SOLITARY PULMONARY NODULE Acti ve [facility] PNEUMONIA, UNSPECIFIED ORGANISM Active [facility] CHRONIC OBSTRUCTIVE PULMONARY DISEASE W Active [facility] Medications Medication Details Route Status Patient Instructions Ordering Provider Order Date Source predniSONE 20 mg oral tablet 4 0 mg = 2 tab, PO, Daily, X 5 day, # 10 tab, 0 Refill(s), Pharmacy: [facility] [id number] Active 12/13/2018 [facility] atorvastatin Notes: (Same As: Lipitor) Inactive 12/13/2018 [facility] Nebulizer Misc/Other 1 ea, MIS C, PRN, PRN As directed by physician, Please use albuterol as needed as directed, # 1 ea, 0 Refill(s), Pharmacy: [facility] [id number] Active 12/12/2018 [facility] Albuterol 0.83 MG/ML Inhalant Solution 2.49 mg = 3 mL, NEB, Q6H, PRN as needed for shortness of breath, # 30 ea, 0 Refill(s), Pharmacy: [facility] [id number] Active 12/12/2018 [facility] Levofloxacin 500 MG Oral Tablet [Levaquin] 500 mg = 1 tab, PO, Q24H, X 4 day, # 4 tab, 0 Refill(s), Pharmacy: [facility] [id number] Active 12/12/2018 [facility] 200 ACTUAT Albuterol 0.09 MG/ACTUAT Mete red Dose Inhaler [ProAir HFA] 90 microgram = 1 puff, INHALATION, Q6H, PRN as needed for wheezing, # 9 gm, 0 Refill(s), Pharmacy: [facility] [id number] Active 12/12/2018 [facility] albuterol Notes: SEE RT DOCUME NTATION (Same as: Proventil) Inactive 12/12/2018 [facility] tizanidine Notes: (Same As: Za naflex) Inactive 12/12/2018 [facility] tizanidine Notes: (Same As: Za naflex) Inactive 12/12/2018 [facility] topiramate Notes: (Same As: To pamax) "Do Not Crush" Inactive 12/12/2018 [facility] 24 HR Metoprolol Tartrate 25 MG Extended Release Tablet [Toprol] Notes: (Same as: Toprol XL) Do Not Crush Inactive 12/12/2018 [facility] Lisinopril Notes: (Same as: Pr inivil, Zestril) Inactive 12/12/2018 [facility] Advair Diskus 250 mcg-50 mcg inhalation powder 1 puff, Route: INHALATION, Drug Form: AERO, Dosing Weight 55.199, kg, BID, Start date: 12/12/18 9:00:00 CDT, Duration: 30 day, Stop date: 01/10/19 17:00:00 CDT Inactive 12/12/2018 [facility] Plavix Notes: (Same As: Plavix) Inactive 12/12/2018 [facility] Aspirin 81 MG Enteric Coated Tablet Notes: Do not crush or chew. (Same As: Ecotrin) Inactive 12/12/2018 [facility] Pulmicort Respules Notes: (Roman e As: Pulmicort) Inactive 12/12/2018 [facility] Protonix Notes: Tablet should not be chewed or crushed. (Same as: Protonix) Inactive 12/12/2018 [facility] methylPREDNISolone SODium SUCCinate Notes: (Same as:Solu-MEDROL, A-Methapred) Inactive 12/12/2018 [facility] Guaifenesin Notes: (Same as: G uaifenesin LA, Humibid LA, Mucinex) "Do Not Crush" Take medication with plenty of water. No Longer Active 12/12/2018 [facility] Renée Garg Notes: (Same A s: Renée Garg) "Do Not Crush" No Longer Active 12/12/2018 [facility] Lovenox Notes: (Same as: Loven ox) No Longer Active 12/12/2018 [facility] Azithromycin Notes: Take 1 ezequiel r before or 2 hours after meals. (Same As: Zithromax) No Longer Active 12/12/2018 [facility] Ceftriaxone Notes: (Same As: Ambrocio hanson). Use with 100 mL NS and infuse over 30 min MEDICATION WASTE Product Size: 1000 mg Product Wasted: ___ mg No Longer Active 12/12/2018 [facility] Albuterol 0.833 MG/ML / Ipratropium Brom catherine 0.167 MG/ML Inhalant Solution Notes: (Same as: Duoneb) No Longer Active 12/12/2018 [facility] Ondansetron Notes: (Same as: Kristal rene) MEDICATION WASTE Product Size: 4 mg Product Wasted: ___ mg No Longer Active 12/11/2018 [facility] Dextrose 50% Syringe 12.5 gm, 25 mL, Route: IVP, Drug Form: INJ, Dosing Weight 55.199, kg, PRN, PRN Blood Glucose Results, Start date: 12/11/18 18:06:00 CDT, Duration: 30 day, Stop date: 01/10/19 18:05:00 CDT No Longer Active 12/11/2018 [facility] Acetaminophen Notes: Do not ex ceed 4 gm/day. (Same as: Tylenol) No Longer Active 12/11/2018 [facility] Glucagon 1 mg, Route: IM, Drug form: PDR/INJ, PRN, Dosing Weight 55.199, kg, PRN Blood Glucose Results, Start date: 12/11/18 18:06:00 CDT, Duration: 30 day, Stop date: 01/10/19 18:05:00 CDT No Longer Active 12/11/2018 [facility] tizanidine 2 mg oral capsule 2 mg = 1 cap, PO, Daily, 0 Refill(s) Active 12/11/2018 [facility] predniSONE 10 mg oral tablet S ee Special Instructions, PO, Daily, 12 day regimen: Days 1-4 - 30 mg (3 tabs) daily Days 5-8 - 20 mg (2 tabs) daily Days 9-12 - 10 mg (1 tab) daily, X 12 day, # 24 tab, 0 Refill(s) Active 11/22/2015 [facility] Levofloxacin 500 MG Oral Tablet [Levaquin] 500 mg = 1 tab, PO, Q24H, X 7 day, # 7 tab, 0 Refill(s) Active 11/22/2015 [facility] topiramate Notes: (Same As: To pamax) "Do Not Crush" Inactive 11/22/2015 [facility] 24 HR Metoprolol Tartrate 25 MG Extended Release Tablet [Toprol] Notes: (Same as: Toprol XL) Do Not Crush Inactive 11/22/2015 [facility] Lisinopril Notes: (Same as: Pr inivil, Zestril) Inactive 11/22/2015 [facility] Plavix Notes: (Same As: Plavix) Inactive 11/22/2015 [facility] Aspirin 81 MG Enteric Coated Tablet Notes: Do not crush or chew. (Same As: Ecotrin) Inactive 11/22/2015 [facility] Advair Diskus 250 mcg-50 mcg inhalation powder Notes: (Same as: Advair) Inactive 11/21/2015 [facility] heparin Notes: porcine heparin No Longer Active 11/21/2015 [facility] budesonide-formoterol 160 mcg-4.5 mcg/in h inhalation aerosol with adapter Notes: (Same as: Symbicort) WASTE: Aero raghu - Return to Pharmacy No Longer Active 11/21/2015 [facility] Azithromycin Notes: (Same As: Zithromax IV) No Longer Active 11/21/2015 [facility] Ceftriaxone Notes: (Same As: R ocephin). Use with 100 mL NS and infuse over 30 min MEDICATION WASTE Product Size: 1000 mg Product Wasted: ___ mg No Longer Active 11/21/2015 [facility] Aspirin 81 MG Enteric Coated Tablet 81 mg = 1 tab, PO, Daily, # 90 tab, 3 Refill(s) Active 11/20/2015 [facility] atorvastatin 20 mg oral tablet 20 mg = 1 tab, PO, Bedtime, # 90 tab, 3 Refill(s) Active 11/20/2015 [facility] Advair Diskus 250 mcg-50 mcg inhalation powder 1 puff, INHALATION, BID, # 1 ea, 3 Refill(s) Active 11/20/2015 [facility] Atropine 0.5 mg, 5 mL, Route: IVP, Drug form: INJ, PRN, Dosing Weight 56.818, kg, PRN Bradycardia, Start date: 11/20/15 2:44:00 CDT, Duration: 30 day, Stop date: 12/20/15 2:43:00 CDT, symtaomaticbradycardia heart rate less than 40 No Longer Active 11/20/2015 [facility] Nitroglycerin 0.4 MG Sublingual Tablet Notes: (Same as:Nitroquick, Nitrostat) "Do Not Crush" Sublingual tablet No Longer Active 11/20/2015 [facility] Ondansetron Notes: (Same as: Kristal rene) MEDICATION WASTE Product Size: 4 mg Product Wasted: ___ mg No Longer Active 11/20/2015 [facility] Tylenol Notes: Do not exceed 4 gm/day. (Same as: Tylenol) Inactive 11/20/2015 [facility] Sodium Chloride 0.154 MEQ/ML Injectable Solution 1,000 mL, Rate: 100 ml/hr, Infuse over: 10 hr, Route: IV, Dosing Weight 56.818 kg, Total Volume: 1,000, Start date: 11/19/15 20:56:00 CDT, Duration: 30 day, Stop date: 12/19/15 20:55:00 CDT No Longer Active 11/20/2015 [facility] Ceftriaxone Notes: (Same As: Ambrocio hanson). Use with 100 mL NS and infuse over 30 min MEDICATION WASTE Product Size: 1000 mg Product Wasted: ___ mg Inactive 11/20/2015 [facility] Azithromycin Notes: (Same As: Zithromax IV) Inactive 11/20/2015 [facility] Albuterol 0.83 MG/ML Inhalant Solution Notes: SEE RT DOCUMENTATION (Same as: Proventil) Inactive 11/20/2015 [facility] Albuterol 0.833 MG/ML / Ipratropium Brom catherine 0.167 MG/ML Inhalant Solution [DuoNeb] Notes: (Same as: Duoneb) No Longer Active 11/20/2015 [facility] Saline Flush 0.9% Notes: (Same as: BD Posiflush) No Longer Active 11/20/2015 [facility] 24 HR Metoprolol Tartrate 25 MG Extended Release Tablet [Toprol] 25 mg = 1 tab, PO, Daily, # 30 tab, 0 Re fill(s) Active 08/25/2014 [facility] lisinopril 20 mg oral tablet 2 0 mg = 1 tab, PO, Daily, # 30 tab, 0 Refill(s) Active 08/25/2014 [facility] clopidogrel 75 mg oral tablet 75 mg = 1 tab, PO, Daily, # 30 tab, 0 Refill(s) Active 08/25/2014 [facility] atorvastatin 10 mg oral tablet 20 mg = 2 tab, PO, Bedtime, # 30 tab, 0 Refill(s) Active 08/25/2014 [facility] Aspirin 81 MG Enteric Coated Tablet 81 mg = 1 tab, PO, Daily, # 30 tab, 0 Refill(s) Active 08/25/2014 [facility] atorvastatin 20 mg oral tablet 20 mg = 1 tab, PO, Bedtime, # 30 tab, 0 Refill(s) Active 08/25/2014 [facility] topiramate Notes: (Same As: To pamax) "Do Not Crush" Inactive 08/25/2014 [facility] 24 HR Metoprolol Tartrate 25 MG Extended Release Tablet [Toprol] Notes: (Same as: Toprol XL) Do Not Crush Inactive 08/25/2014 [facility] Lisinopril Notes: (Same as: Pr inivil, Zestril) Inactive 08/25/2014 [facility] Plavix Notes: (Same As: Plavix) Inactive 08/25/2014 [facility] budesonide-formoterol 160 mcg-4.5 mcg/in h inhalation aerosol with adapter Notes: (Same as: Symbicort) No Longer Active 08/25/2014 [facility] atorvastatin Notes: (Same As: Lipitor) No Longer Active 08/25/2014 [facility] Saline Flush 0.9% Notes: Same as: BD Posiflush Sterile No Longer Active 08/25/2014 [facility] Famotidine Notes: (Same as: Pe pcid) No Longer Active 08/25/2014 [facility] Aspirin 81 MG Enteric Coated Tablet Notes: Do not crush or chew. (Same As: Ecotrin) No Longer Active 08/24/2014 [facility] Advair Diskus 250 mcg-50 mcg inhalation powder 1 puff, Route: INHALATION, Drug Form: AERO, Dosing Weight 54.9, kg, BID, Start date: 08/24/14 17:00:00, Duration: 30 day, Stop date: 09/23/14 9:00:00 Inactive 08/24/2014 [facility] nitroglycerin 0.4 mg sublingual tablet Notes: (Same as:Nitroquick, Nitrostat) "Do Not Crush" Sublingual tablet No Longer Active 08/24/2014 [facility] atropine 0.5 mg, 5 mL, Route: IVP, Drug form: INJ, PRN, PRN Bradycardia, Start date: 08/24/14 15:30:00, Duration: 30 day, Stop date: 09/23/14 15:29:00 No Longer Active 08/24/2014 [facility] Zofran Notes: (Same as: Zofran) No Longer Active 08/24/2014 [facility] Sodium Chloride 0.9% IV 1,000 mL 1,000 mL, Rate: 1000 ml/hr, Infuse over: 1 hr, Route: IV, Dosing Weight 54.9 kg, Total Volume: 1,000, Start date: 08/24/14 12:53:00, Duration: 1 doses or times, Stop date: 08/24/14 13:52:00 Inactive 08/24/2014 [facility] Saline Flush 0.9% Notes: Same as: BD Posiflush Sterile No Longer Active 08/24/2014 [facility] Temazepam Notes: (Same As: Res toril) No Longer Active 08/24/2014 [facility] Diphenhydramine 25 mg, 1 tab, Route: PO, Drug form: TAB, Bedtime, Dosing Weight 54.9, kg, PRN Insomnia, Start date: 08/24/14 9:40:00, Duration: 30 day, Stop date: 09/23/14 9:39:00 No Longer Active 08/24/2014 [facility] Ondansetron Notes: (Same as: Kristal reen) No Longer Active 08/24/2014 [facility] Acetaminophen 325 MG / Hydrocodone Giovanni trate 5 MG Oral Tablet Notes: (Same as: [place] 325/5) Do not ex ceed 4gm/day of acetaminophen. No Longer Active 08/24/2014 [facility] lisinopril 20 mg oral tablet 2 0 mg = 1 tab, PO, Daily, # 30 tab, 0 Refill(s) On Hold 08/24/2014 [facility] atorvastatin 20 mg oral tablet 20 mg = 1 tab, PO, Bedtime, # 30 tab, 5 Refill(s) Active 11/16/2013 [facility] metoprolol 25 mg oral tablet, extended release 25 mg, PO, Daily, # 30 tab, 6 Refill(s) Active 11/16/2013 [facility] clopidogrel 75 mg oral tablet 75 mg = 1 tab, PO, Daily, # 30 tab, 2 Refill(s) Active 11/16/2013 [facility] Aspirin 325 MG Enteric Coated Tablet 325 mg = 1 tab, PO, Daily, # 30 tab, 5 Refill(s) Active 11/16/2013 [facility] Advair Diskus 250 mcg-50 mcg inhalation powder Notes: (Same as: Advair) Inactive 11/16/2013 [facility] Lisinopril Notes: (Same as: Pr inivil, Zestril) Inactive 11/16/2013 [facility] clopidogrel Notes: (Same As: P lavix) Inactive 11/16/2013 [facility] topiramate Notes: (Same As: To pamax) "Do Not Crush" Inactive 11/16/2013 [facility] 200 ACTUAT Albuterol 0.09 MG/ACTUAT Mete red Dose Inhaler [ProAir HFA] Notes: Albuterol 90 microgram/inh 8gm HF A Same as: Ventolin, Proventil No Longer Active 11/16/2013 [facility] Diclofenac Notes: Do Not Crush or Chew. (Same as: Voltaren) No Longer Active 11/16/2013 [facility] Saline Flush 0.9% Notes: (Same as: BD Posiflush) No Longer Active 11/16/2013 [facility] atorvastatin Notes: (Same As: Lipitor) No Longer Active 11/16/2013 [facility] Aspirin 325 MG Enteric Coated Tablet Notes: Take with food. No Longer Active 11/15/2013 [facility] atropine 0.5 mg, 5 mL, Route: IVP, Drug form: INJ, PRN, PRN Bradycardia, Start date: 11/15/13 17:28:00, Duration: 30 day, Stop date: 12/15/13 17:27:00 No Longer Active 11/15/2013 [facility] Saline Flush 0.9% Notes: (Same as: BD Posiflush) No Longer Active 11/15/2013 [facility] Ondansetron Notes: (Same as: Kristal rene) No Longer Active 11/15/2013 [facility] Nitroglycerin Notes: (Same as: Nitroquick, Nitrostat) "Do Not Crush" Sublingual tablet No Longer Active 11/15/2013 [facility] Acetaminophen 325 MG / Hydrocodone Giovanni trate 5 MG Oral Tablet Notes: (Same as: [place]field 325/5) Do not ex ceed 4gm/day of acetaminophen. No Longer Active 11/15/2013 [facility] clopidogrel Notes: ( Same as: Plavix) Inactive 11/15/2013 [facility] Zyrtec 10 mg, PO, Daily, as ne eded for allergy symptoms, 0 Refill(s) Active 11/15/2013 [facility] diclofenac potassium 50 mg oral tablet 50 mg = 1 tab, PO, TID, as needed for pain, # 30 tab, 0 Refill(s) No Longer Active 11/15/2013 [facility] Sumatriptan 12 MG/ML Injectable Solution [Imitrex] 6 mg = 0.5 ml, SUB-Q, ONCE, Headache, # 1, 0 Refill(s) No Longer Active 11/15/2013 [facility] 200 ACTUAT Albuterol 0.09 MG/ACTUAT Mete red Dose Inhaler [ProAir HFA] 1 puff, INHALATION, Q6H, as needed for w heezing, # 9 gm, 0 Refill(s) Active 11/15/2013 [facility] Advair Diskus 250 mcg-50 mcg inhalation powder 1 puff, INHALATION, BID, # 28 ea, 0 Refill(s) Active 11/15/2013 [facility] Activella 1 mg =, PO, Daily, 0 Refill(s) Active 11/15/2013 [facility] topiramate 100 mg oral tablet 100 mg = 1 tab, PO, Daily, # 30 tab, 0 Refill(s) Active 11/15/2013 [facility] lisinopril 10 mg oral tablet 1 0 mg = 1 tab, PO, Daily, # 30 tab, 0 Refill(s) Active 11/15/2013 [facility] Lisinopril 10 MG Oral Tablet (Active) Active [facility] Topiramate 100 MG Oral Tablet (Active) Active [facility] Advair Diskus AEPB (Active) Active [facility] Imitrex TABS (Active) Active [facility] Allergies, Adverse Reactions, Alerts Substance Category Reaction Severity Reaction type Status Date Reported Comments Source No Known Medication Allergies Assertion Drug aller gy [facility] Immunizations Immunization Date Given Site Status Last Updated Comments Source pneumococcal 13-valent vaccine 12/12/2018 Left Deltoid completed [facility] Results Order Name Results Value Reference Range Date Interpretation Comments Source ELECTROLYTES AGAP 11.6 10.0 - 20.0 12/12/2018 [facility] ELECTROLYTES eGFR 62 12/12/2018 Result Comment: The eGFR is calculated using the [...] from the National Kidney Disease Education Program (NKDEP) which additionally recommends that when the eGFR is used in patients with extremes of body mass index for purposes of drug dosing, the eGFR should be multiplied by the estimated BMI. [facility] ELECTROLYTES Creatinine Lvl 0.9 0 0.50 - 1.40 12/12/2018 [facility] ELECTROLYTES Sodium Lvl 139 135 - 145 12/12/2018 [facility] ELECTROLYTES CO2 17 24 - 32 12/12/2018 [facility] ELECTROLYTES Calcium Lvl 8.9 8.5 - 10.5 12/12/2018 [facility] ELECTROLYTES Potassium Lvl 3.6 3.5 - 5.1 12/12/2018 [facility] ELECTROLYTES Chloride Lvl 114 95 - 109 12/12/2018 [facility] ELECTROLYTES Glucose Lvl 178 70 - 99 12/12/2018 [facility] ELECTROLYTES BUN 17 7 - 22 12/12/2018 [facility] HEMATOLOGY Neutrophils # 12.6 1.5 - 8.1 12/12/2018 [facility] HEMATOLOGY Basophils 0.1 0.0 - 1.0 12/12/2018 [facility] HEMATOLOGY Monocytes 2.4 2.0 - 12.0 12/12/2018 [facility] HEMATOLOGY Monocytes # 0.3 0.0 - 0.8 12/12/2018 [facility] Lymphocytes # 0.6 1.0 - 5.5 12/12/2018 [facility] HEMATOLOGY Segs 93.1 45.0 - 75.0 12/12/2018 [facility] Lymphocytes 4.4 20.0 - 40.0 12/12/2018 [facility] Hgb 12.7 12.0 - 16.0 12/12/2018 [facility] Hct 38.5 36.0 - 48.0 12/12/2018 [facility] MCH 31.2 27.0 - 31.0 12/12/2018 [facility] WBC 13.5 3.7 - 10.4 12/12/2018 [facility] MCV 94.5 80.0 - 98.0 12/12/2018 [facility] RBC 4.08 4.20 - 5.40 12/12/2018 [facility] Platelet 313 133 - 450 12/12/2018 [facility] MPV 9.0 7.4 - 10.4 12/12/2018 [facility] MCHC 33.0 32.0 - 36.0 12/12/2018 [facility] RDW 14.2 11.5 - 14.5 12/12/2018 [facility] CHEM PANEL eGFR 86 11/21/2015 Result Comment: The eGFR is calculated using the [...] from the National Kidney Disease Education Program (NKDEP) which additionally recommends that when the eGFR is used in patients with extremes of body mass index for purposes of drug dosing, the eGFR should be multiplied by the estimated BMI. [facility] CHEM PANEL BUN 12 7 - 22 11/21/2015 [facility] CHEM PANEL Glucose Lvl 132 70 - 99 11/21/2015 [facility] CHEM PANEL Sodium Lvl 139 135 - 145 11/21/2015 [facility] CHEM PANEL Creatinine Lvl 0.69 0.50 - 1.40 11/21/2015 [facility] CHEM PANEL Potassium Lvl 3.6 3.5 - 5.1 11/21/2015 [facility] CHEM PANEL Calcium Lvl 7.5 8.5 - 10.5 11/21/2015 [facility] CHEM PANEL CO2 22 24 - 32 11/21/2015 [facility] CHEM PANEL Chloride Lvl 111 95 - 109 11/21/2015 [facility] CHEM PANEL AGAP 9.6 10.0 - 20.0 11/21/2015 [facility] HEMATOLOGY RBC 3.83 4.20 - 5.40 11/21/2015 [facility] HEMATOLOGY Hgb 11.5 12.0 - 16.0 11/21/2015 [facility] HEMATOLOGY WBC 13.9 3.7 - 10.4 11/21/2015 [facility] HEMATOLOGY Hct 35.7 36.0 - 48.0 11/21/2015 [facility] HEMATOLOGY MCV 93.2 80.0 - 98.0 11/21/2015 [facility] HEMATOLOGY RDW 14.0 11.5 - 14.5 11/21/2015 [facility] HEMATOLOGY MCH 30.1 27.0 - 31.0 11/21/2015 [facility] HEMATOLOGY MCHC 32.3 32.0 - 36.0 11/21/2015 [facility] HEMATOLOGY Platelet 262 133 - 450 11/21/2015 [facility] HEMATOLOGY MPV 8.3 7.4 - 10.4 11/21/2015 [facility] HEMATOLOGY PTT 31.7 22.9 - 35.8 11/21/2015 [facility] URINE AND STOOL UA Bili Negative *NA* (11/20/15 9:11 PM) Negative 11/21/2015 [facility] URINE AND STOOL UA Blood Negative (11/20/15 9:11 PM) Negative 11/21/2015 [facility] URINE AND STOOL UA Nitrite Negative (11/20/15 9:11 PM) Negative 11/21/2015 [facility] URINE AND STOOL UA Urobilinogen 2.0 0.1 - 1.0 11/21/2015 [facility] URINE AND STOOL UA Leuk Est Negative (11/20/15 9:11 PM) Negative 11/21/2015 [facility] URINE AND STOOL UA Ketones Negative mg/dL Negative mg/dL 11/21/2015 [facility] URINE AND STOOL UA Protein Negative mg/dL Negative mg/dL 11/21/[address] [facility] [address] URINE AND STOOL UA Glucose Negative mg/dL Negative mg/dL 11/21/[address] [facility] [address] URINE AND STOOL UA WBC 2 0 - 5 11/21/2015 [facility] URINE AND STOOL UA Color Ltyellow 11/21/2015 [facility] URINE AND STOOL UA Turbidity Clear (11/20/15 9:11 PM) Clear 11/21/2015 [facility] URINE AND STOOL UA Spec Grav 1.014 <=1.030 11/21/2015 [facility] URINE AND STOOL UA pH 7.0 5.0 - 8.0 11/21/2015 [facility] URINE AND STOOL UA Bacteria Occasional /HPF None Seen /HPF 11/21/2015 [facility] URINE AND STOOL UA RBC 3 0 - 2 11/21/2015 [facility] URINE AND STOOL UA Sq Epi Occasional /LPF Few /LPF 11/21/2015 [facility] CHEM PANEL Lactic Acid Lvl 1.5 0.5 - 2.2 11/20/2015 [facility] CARDIAC ENZYMES Total CK 94 12 - 191 11/20/2015 [facility] CARDIAC ENZYMES Troponin-I <0.02 0.00 - 0.40 11/20/2015 [facility] CARDIAC ENZYMES CK MB 0.8 0.5 - 3.6 11/20/2015 [facility] CARDIAC ENZYMES BNP 200 <=100 pg/mL 11/20/2015 [facility] CARDIAC ENZYMES CK MB Index 0.9 0.0 - 2.5 11/20/2015 [facility] CHEM PANEL A/G Ratio 1.0 0.7 - 1.6 11/20/2015 [facility] CHEM PANEL AGAP 14.6 10.0 - 20.0 11/20/2015 [facility] CHEM PANEL B/C Ratio 20 6 - 25 11/20/2015 [facility] CHEM PANEL Globulin 3.6 2.0 - 4.0 11/20/2015 [facility] CHEM PANEL Bili Total 0.5 0.2 - 1.3 11/20/2015 [facility] CHEM PANEL ALT 21 0 - 65 11/20/2015 [facility] CHEM PANEL AST 19 0 - 37 11/20/2015 [facility] CHEM PANEL Alk Phos 80 39 - 136 11/20/2015 [facility] CHEM PANEL eGFR 61 11/20/2015 Result Comment: The eGFR is calculated using the [...] from the National Kidney Disease Education Program (NKDEP) which additionally recommends that when the eGFR is used in patients with extremes of body mass index for purposes of drug dosing, the eGFR should be multiplied by the estimated BMI. [facility] CHEM PANEL CO2 17 24 - 32 11/20/2015 [facility] CHEM PANEL Calcium Lvl 8.4 8.5 - 10.5 11/20/2015 [facility] CHEM PANEL Total Protein 7.3 6.4 - 8.4 11/20/2015 [facility] CHEM PANEL Albumin Lvl 3.7 3.5 - 5.0 11/20/2015 [facility] CHEM PANEL Potassium Lvl 3.6 3.5 - 5.1 11/20/2015 [facility] CHEM PANEL Chloride Lvl 108 95 - 109 11/20/2015 [facility] CHEM PANEL BUN 18 7 - 22 11/20/2015 [facility] CHEM PANEL Creatinine Lvl 0.92 0.50 - 1.40 11/20/2015 [facility] CHEM PANEL Sodium Lvl 136 135 - 145 11/20/2015 [facility] CHEM PANEL Glucose Lvl 127 70 - 99 11/20/2015 [facility] HEMATOLOGY Platelet 299 133 - 450 11/20/2015 [facility] HEMATOLOGY RDW 13.5 11.5 - 14.5 11/20/2015 [facility] HEMATOLOGY WBC 17.2 3.7 - 10.4 11/20/2015 [facility] HEMATOLOGY MPV 8.3 7.4 - 10.4 11/20/2015 [facility] HEMATOLOGY RBC 4.68 4.20 - 5.40 11/20/2015 [facility] HEMATOLOGY Hgb 14.1 12.0 - 16.0 11/20/2015 [facility] HEMATOLOGY Hct 43.2 36.0 - 48.0 11/20/2015 [facility] MCH 30.0 27.0 - 31.0 11/20/2015 [facility] HEMATOLOGY MCV 92.3 80.0 - 98.0 11/20/2015 [facility] MCHC 32.5 32.0 - 36.0 11/20/2015 [facility] Basophils # 0.1 0.0 - 0.2 11/20/2015 [facility] Segs 91.7 45.0 - 75.0 11/20/2015 [facility] Lymphocytes 2.5 20.0 - 40.0 11/20/2015 [facility] HEMATOLOGY Monocytes 5.5 2.0 - 12.0 11/20/2015 [facility] HEMATOLOGY Basophils 0.3 0.0 - 1.0 11/20/2015 [facility] Segs-Bands # 15.8 1.5 - 8.1 11/20/2015 [facility] Lymphocytes # 0.4 1.0 - 5.5 11/20/2015 [facility] Monocytes # 0.9 0.0 - 0.8 11/20/2015 [facility] Pathology Reports No Data Provided for This Section Diagnostic Reports Report Value Date Source Chest wo contrast CT Chest wo contrast CT 11/23/2018 8:32 CDT INDICATION: - J44.9 Chronic obstructive pulmonary disease, unspecified TECHNIQUE: Volumetric CT of the chest was acquired from the thoracic inlet down through the upper abdomen. Axial, coronal and sagittal images were provided. This exam was performed according to our departmental dose-optimization program, which includes automated exposure control, adjustment of the MA and/or KV according to patient size and/or use of iterative reconstruction technique. IV Contrast: none. DLP: 154 mGy-cm COMPARISON: X-ray 02/23/[address] scan 10/26/2017 FINDINGS: Note that this exam is suboptimal for evaluation of the mediastinum and baldev secondary to lack of intravenous contrast. Visualized portions of the thyroid gland are unremarkable. Grossly no mediastinal, hilar, or axillary lymphadenopathy. Heart size is within normal limits. Scattered coronary artery calcifications. No pericardial effusion. Central airways are patent. Stable emphysematous changes seen predominantly within the upper lungs. Scarring again seen within the left lung apex as well as the right middle lobe which appear stable. Visualized portions of the adrenal glands are within normal limits. Stable subcentimeter calcified stone seen within the left kidney (2, 103). No acute bony abnormalities appreciated. No suspicious osteoblastic or osteolytic lesions. IMPRESSION: 1. No significant interval change. Stab le emphysematous changes seen predominantly within the upper lungs. Scarring seen within the left lung apex as well as the right middle lobe. 11/23/2018 [facility]LEJANDRA A[facility] Chest 2 views DX EXAM: PA AND LATERAL CHEST X RAY DATE:- 02/23/2018 2:55 PM CDT . ORDERING PHYSICIAN: Bridget Morgan MD CLINICAL INDICATION: - J44.9 Chronic obstructive pulmonary disease, unspecified; R05 Cough; TECHNIQUE: PA and lateral views of chest COMPARISON: November 19, 2015 chest x-ray , 10/26/[address] FINDINGS: The lungs are hyperinflated and likely emphysematous scarring. There is no dense consolidation. Costophrenic sulci are sharp. Clear. Heart size and mediastinal contours are stable. There is no acute bony abnormality. IMPRESSION: Stable chronic obstructive changes and pulmonary scarring. No acute findings. 02/23/2018 ALEJANDRA Davisa Sinus paranasal series DX EXAM : Sinus paranasal series DX HISTORY: - J44.9 Chronic obstructive pulmonary disease, unspecified; R05 Cough COMPARISON: None IMPRESSION: No air-fluid level or radiographically evident significant mucosal thickening of the paranasal sinuses is seen. 02/23/2018 OP[facility] A[facility]ier Chest wo contrast CT Exam: CT scan of the chest without contrast Reason for Exam: - R91.1 Solitary pulmonary nodule Comparison Exam: CT scan 10/23/2016 and 11/19/2015 Technique: Multiple axial images were obtained of the chest. 5 mm slices were acquired without injection of intravenous contrast. Reformatted sagittal and coronal images were obtained for additional diagnostic information. Total exam DLP = 151 mGy-cm. This exam was performed according to our departmental dose- optimization program, which includes automated exposure control, adjustment of the MA and/or KV according to patient size and/or use of iterative reconstruction technique. Discussion: Note that this exam is suboptimal for evaluation of the mediastinum and baldev secondary to lack of intravenous contrast. Visualized portions of the thyroid gland are unremarkable. Grossly no mediastinal, hilar, or axillary lymphadenopathy. Heart size is within normal limits. Scattered coronary artery calcifications. No pericardial effusion. Central airways are patent. Stable emphysematous changes seen predominantly within the upper lungs. Scarring seen within the left lung apex as well as the right middle lobe which appear stable. Visualized portions of the adrenal glands are within normal limits. Stable subcentimeter calcified stone seen within the left kidney. No acute bony abnormalities appreciated. No suspicious osteoblastic or osteolytic lesions. Impression: 1. Stable emphysematous changes seen pr edominantly within the upper lungs. Scarring seen within the left lung apex as well as the right middle lobe which appear stable. 10/26/2017 OPID Auxier Chest wo contrast CT EXAM: [facility] wo contrast CT HISTORY: R91.1 Solitary pulmonary nodule COMPARISON: 11/19/2015, 07/25/2015 Technique: CT scan of the chest was performed from the thoracic inlet to the lung bases without intravenous contrast administration. Images are presented in the axial, sagittal, and coronal planes. The total DLP for this examination is 142 mGycm. FINDINGS: The visualized thyroid gland appears normal. There is heavy calcific atherosclerotic disease. There is no mediastinal, hilar or axillary adenopathy within the confines of noncontrast technique. There is no pericardial or pleural effusion. There is advanced emphysema. Nodular pleuroparenchymal scarring in the left apex, right middle lobe and lingula is stable. Bone windows demonstrate no worrisome lytic or blastic osseous lesions. Small nonobstructing left renal stone. IMPRESSION: Stable CT chest with advanced emphysema and areas of pleural parenchymal scarring. Nodular areas of scarring are stable dating back to 07/25/2015. 10/23/2016 [facility] OPID Auxier Spine lumbar wo contrast MRI M RI LUMBAR SPINE WITHOUT CONTRAST COMPARISON: 04/04/2016 radiograph, 03/04/2013 MRI exam. TECHNIQUE: Sagittal T1, sagittal T2 with fat saturation, axial T1 and axial T2 images were obtained. No intravenous gadolinium was given. FINDINGS: The paravertebral soft tissues are normal. The conus medullaris terminates at the T12-L1 level. Mild dextrocurvature of the lumbar spine is stable. T12-L1: Unremarkable. L1-L2: Unremarkable. L2-L3: Stable approximately 2 mm left asymmetric disc bulge with minimal central canal stenosis and minimal bilateral foraminal stenosis. L3-L4: Progressive severe disc space narrowing since 2012, with approximately 2.5 mm posterior disc osteophyte complex. Mild ligamenta flava redundancy is seen with mild to moderate central canal stenosis. Right lateral recess stenosis is present. There is severe bilateral foraminal stenosis. L4-L5: Stable mild disc bulge. Moderate ligamenta flava redundancy with bilateral lateral recess stenosis. There is moderate to severe right foraminal stenosis and mild left foraminal stenosis. L5-S1: Stable minimal disc bulge without central canal or foraminal stenosis. Stable right renal cyst. IMPRESSION: 1. Multilevel disc degenerative disease and spondylosis. 2. Progressive L3-L4 degenerative change s with [id number] central canal stenosis and severe bilateral foraminal stenosis. Right lateral recess stenosis. 3. L4-L5 moderate to severe right forami nal stenosis. 04/21/2016 ALEJANDRA Davisa Spine lumbar series DX LUMBOSA CRAL SPINE X-RAY 5 VIEWS Clinical History: 75-year-old female with chronic low back pain. Comparison: 12/17/2011. Findings: Bones are osteopenic. Vertebral bodies have normal height, there is no fracture. Minor endplate sclerosis with small endplate osteophytes. The L3-L4 intervertebral space is significant narrowed with endplate sclerosis. There is minimal right lateral displacement of L3 on L4, slightly more pronounced today than in 2012. Other intervertebral spaces are maintained. No lytic or blastic lesion of concern identified. No pars defect is seen. The paraspinal soft tissues are unremarkable Impression: Osteopenia L3-L4 disc disease with minimal right lateral displacement to right of L3 on L4. Osteoarthritic changes has mild progressed since 2011. 04/04/2016 ALEJANDRA Tranadena Hip bilat w pelvis and both lat hips DX Exam: Pelvis x- ray, one view and bilateral hip x-rays 2 views each Reason for Exam: back pain Comparison Exam: None Discussion: No fractures or dislocations are seen within the pelvis or hips. The SI joints, pubic symphysis, and hip joints are intact. No evidence for avascular necrosis within the femoral heads. No suspicious osteoblastic or osteolytic lesions. No dilated loops of bowel within the visualized portions of the pelvis. Impression: 1. Unremarkable x-ray of the pelvis and bilateral hips. 04/04/2016 ALEJANDRA Tranadena Chest 1view DX Patient Name: Viktor HURTADO : 1940; Age: 75 years y/o Female MR: [id number] * CHEST, portable, 1 view HISTORY: ; Dyspnea; it is indicated the patient has a history of lung carcinoma. COMPARISON: 09/11/2014. A study of 06/21/2014 and a chest computed tomography scan of the chest from today reviewed. CT images through the chest and the report of a PET computed tomography scan of 08/18/2015 were also reviewed. IMPRESSION: 1. A patchy density is noted in the left base which appears to be increased when compared to the topogram from the chest computed tomography scan performed earlier today. This may represent a developing pneumonia. Follow-up is recommended. 2. Small left pleural effusion which rachele ears to have been present on prior CT scans from today and 07/25/2015 as well as a PET/CT scan of 08/18/2015. This could represent a chronic, loculated, and/or organized chronic pleural effusion. 3. The right lung is clear. There is no right pleural effusion. 4. Postoperative change involving the le ft chest. It appears the patient is status post left upper lobectomy. 5. Chronic obstructive pulmonary disease /emphysematous and chronic interstitial changes. 6. The heart is normal in size. There is no evidence of failure. A left coronary artery stent is noted. 7. The regional skeleton is unremarkable . SL: [id number] 11/19/2015 [facility] Chest wo contrast CT Chest wo contrast CT CLINICAL HX: R91.1 Solitary pulmonary nodule. COMPARISON: CT chest 07/25/2015, PET scan 08/18/2015 TECHNIQUE: Contiguous transaxial images of the chest were performed without IV contrast. Reformats are available in sagittal and coronal projections. CT CHEST: LOWER NECK: Symmetric appearance of thyroid gland without focal abnormality. LUNGS AND AIRWAYS: There is persistent pleural-parenchymal scarring noted at the left apex. The nodular density initially identified on CT study of 07/25/2015 is less conspicuous on today's study. Overall appearance of the left lung is relatively stable from recent CT scan from 07/25/2015 and PET scan of 08/18/2015. There is moderate changes of emphysema, stable. Small left basilar effusion. There is scarring noted in the lingula and the right lung base anteriorly. CARDIOVASCULAR AND MEDIASTINUM: The cardiac size is normal. Coronary artery calcifications. The aorta demonstrates normal caliber. Evaluation is limited due to lack of IV contrast but no significant mediastinal or hilar lymphadenopathy is evident. SOFT TISSUE AND BONES: . No significant bony abnormality is noted. ESOPHAGUS AND UPPER ABDOMEN: The esophagus demonstrates normal morphology. Limited images of the upper abdomen are grossly unremarkable. IMPRESSION: Stable examination. Pleural-parenchymal scarring at the left apex is unchanged from recent PET scan 08/18/[address] of 07/25/2015. No change in small left basilar effusion. Moderate emphysema, stable. SL: [id number] 11/19/[address] [facility] [address] Lung non-small cell restaging PET/CT SCAN: TECHNIQUE: 14.8 mCi of FDG were administered intravenously and a series of overlapping emission images were obtained from the skull base to the proximal thighs utilizing a PET/CT hybrid device. The CT was utilized for attenuation correction and anatomic correlation and not as an independent diagnostic study. BLOOD GLUCOSE: The patient is not diabetic. COMPARISON: CT chest 07/25/2015, 04/12/2015, PET scan 10/27/2013 CLINICAL HX: Non-small cell lung carcinoma, status post resection of primary tumor new 2013. New nodular density recent CT study of 07/25/2015 FINDINGS: HEAD AND NECK: No abnormal activity is visualized. CHEST: There is pleural parenchymal scarring noted at the left apex and posterior laterally. New nodular density adjacent the area of scarring does not demonstrate any significant increase in metabolic activity. Maximum SUV is 2.2 on image 56. The overall appearance of the left apex has not changed significantly from recent CT of 04/12/2015. No change in small left basilar effusion. ABDOMEN AND PELVIS: Physiologic activity is visualized in the solid organs, tract and GI tract. SKELETON: No abnormal activity is visualized. IMPRESSION: Pleural parenchymal scarring is stable in appearance from recent CT of 04/12/2015 but increased from previous CT of 01/31/2014. No significant increase in metabolic activity is noted corresponding to the new nodular density noted on CT of 07/25/2015. Given the morphology of this lesion, short-term imaging follow-up is recommended in 3 months. Alternatively, bronchoscopy may be performed as clinically indicated. SL:13 08/18/2015 [facility] Chest w/wo contrast CT CHEST C T WITH AND WITHOUT CONTRAST History: 75-year-old with hemoptysis Technique: Chest CT with and without contrast was performed. Patient was given 100 cc of omnipaque 300 on post contrast imaging. The creatinine level was 1.0 mg/dl and the estimated GFR was 56 ml/min. The CT dose was 977 mGy/cm. Comparison: 04/12/2015 Findings: Pleura: Small left pleural effusion is stable. Heart: Normal chamber size, there is no pericardial effusion. Vessels: Heavy coronary atherosclerotic calcification seen. Mediastinum: The thyroid gland partial visualized is unremarkable. No mediastinal or hilar adenopathy seen. Lung parenchyma: The lungs have emphysematous changes. The left lung at the apex is a 11 x 6 mm nodule, that enhances, increased density from 20 to 60 Hounsfield units, there is 5 image 14, this is a new finding. Lung parenchyma otherwise is stable. Chest wall: The thoracic spine and rib cage as visualized appear normal Upper abdomen: Structures visualized are unremarkable. Small hepatic and renal cysts noted. IMPRESSION: Left lung at the apex has a new 11 mm nodule is enhancing and is suspicious. Consider close followup, biopsy or the PET CT for further characterization. Lungs have chronic emphysematous changes stable. Small left pleural effusion stable. 07/25/2015 [facility] Chest wo contrast CT Exam: CT scan of the chest without contrast Reason for Exam: COPD Comparison Exam: Chest CT 01/31/2014 and chest x-ray 09/11/2014 Technique: Multiple axial images were obtained of the chest. 3.75 mm slices were acquired without injection of intravenous contrast. Reformatted sagittal and coronal images were obtained for additional diagnostic information. Total exam DLP = 265 mGy-cm. Discussion: Note that this exam is suboptimal for evaluation of the mediastinum and baldev secondary to lack of intravenous contrast. Visualized portions of the thyroid gland are unremarkable. Grossly no mediastinal, hilar, or axillary lymphadenopathy. Heart size is within normal limits. Heavy coronary artery calcifications. No pericardial effusion. Small left-sided pleural effusion which has decreased when compared to previous exam. Moderate emphysematous changes are seen within the lungs, predominately the upper lungs bilaterally. These emphysematous changes appear similar to previous chest CT. Scarring seen within the left lung apex. Visualized portions of the adrenal glands are within normal limits. No acute bony abnormalities appreciated. No suspicious osteoblastic or osteolytic lesions. Impression: 1. Moderate emphysematous changes are s een within the lungs, predominately the upper lungs bilaterally. These emphysematous changes appear similar to previous chest CT. Small left-sided pleural effusion which has decreased when compared to previous exam. 04/12/2015 [facility] Chest w/wo contrast CT HISTORY : Abnormal chest x-ray TECHNIQUE: Multidetector images obtained of the chest following the infusion of IV contrast. Multiplanar reformats obtained. DLP:447.75 COMPARISON: Previous chest CT of 06/30/2011. It most recent chest x-ray of 09/29/2013 FINDINGS: Central airways are patent. Centrilobular emphysema is again seen in the bilateral upper lobes. A spiculated nodule is seen in the left upper lobe measuring 1.4 x 1.4 cm (series 5 image 22). No other pulmonary nodules are visualized bilaterally. No parenchymal infiltrates or pleural effusions. The visualized thyroid gland is homogeneous. No axillary, mediastinal, or hilar adenopathy. Thoracic vasculature is normal in caliber. Minimal atherosclerotic disease of the thoracic aorta. No paracardial effusion. The partially visualized left adrenal gland is heterogeneous, however is similar in appearance when compared with the previous study of 06/30/2011. Punctate low attenuation is seen in the left hepatic lobe measuring 6 mm, stable, likely a cyst. Moderate multilevel degenerative disease without evidence of aggressive lytic or blastic osseous lesion. IMPRESSION: Left upper lobe spiculated 1.4 cm nodule, suspicious for primary malignancy. No adenopathy. Partial visualization of the left adrenal gland, which has a heterogeneous appearance. Findings are not significantly changed when compared to the prior CT. Consider further evaluation with CT abdomen pelvis or nuclear medicine PET/CT as clinically indicated. 10/17/2013 ALEJANDRA Auxier Chest 2 views HISTORY: Hyperte nsion and history of smoking TECHNIQUE: Two views of the chest COMPARISON: 06/29/2012 FINDINGS: New 1.2 cm left upper lobe nodule. No other nodules are visualized. No acute infiltrate or effusion. Cardiac silhouette is within normal limits. No acute osseous normalities. IMPRESSION: Indeterminate new 1.2 cm left upper lobe nodule. Further evaluation with chest CT advised. 10/07/2013 ALEJANDRA Auxier Hip bilateral w pelvis and both lat hips Bilateral hips including AP pelvis 03/04/2013 CLINICAL HISTORY: Pain COMPARISON: None FINDINGS: The standard AP pelvis appears within normal limits. Both femoral heads are well-seated in the acetabular compartment without evidence of surface collapse or signs of avascular necrosis. The SI joints are well-maintained. The bony part ring appears intact. IMPRESSION: Negative bilateral hip series. 03/04/2013 ALEJANDRA Hobson Spine lumbar wo contrast MRI L [facility] SPINE MRI March 04, 2013 TECHNIQUE: Sagittal T1, sagittal T2 with fat saturation, axial T1 and axial T2 images were obtained. Comparison is made to December 17, 2011 exam FINDINGS: There are increase in type I (edematous) Modic changes surrounding the L3-L4 endplates. There is a is stable right L3 T2 lesion within the vertebral body. The vertebrae are normal in shape and alignment. The intervertebral disks are desiccated with height loss at L3-L4. There is mild fatty atrophy of the paravertebral musculature in keeping with deconditioning. A large right inferior pole renal cyst appears simple and is stable. The conus medullaris terminates normally at the T12-L1 level. There is no intradural mass lesion. L1-L2: Ligamentum flavum hypertrophy and facet degeneration in with minimal disc bulge. No significant stenosis. L2-L3: Mild disc bulge with ligamentum flavum hypertrophy and facet degeneration without significant stenosis. L3-L4: No significant change in the left posterior lateral disc protrusion with superimposed disc bulge which contacts the left L3 nerve root extra foraminally and results in moderate left neuroforaminal narrowing. There is superimposed ligamentum flavum hypertrophy and facet degeneration which results in mild right neural foraminal narrowing. L4-L5: Mild diffuse disc bulge, ligamentum flavum thickening, and facet hypertrophy with mild bilateral neural foraminal narrowing and facets contacting the exiting right L4 nerve root. L5-S1: Mild disc bulge with facet hypertrophy and no significant stenosis. IMPRESSION: 1. Multilevel degenerative changes as de scribed above. Worsening type I Modic changes at L3-L4 could result in patient's pain. There is potential compromise of the left L3 nerve root. 2.Paravertebral muscular deconditioning benefit from physical therapy. 3. L3 nonspecific T2 lesion likely represents a lipid poor hemangioma given the stability over one year. 03/04/2013 ALEJANDRA Hobson Consultation Notes No Data Provided for This Section Discharge Summaries No Data Provided for This Section History and Physicals No Data Provided for This Section Vital Signs Vital Sign Value Date Comments Source Systolic (mm Hg) 117 12/12/2018 [facility] Diastolic (mm Hg) 59 12/12/2018 [facility] Temperature Oral (F) 98.7 F 12/12/2018 [facility] Respitory Rate 16 12/12/2018 [facility] Heart Rate 76 12/12/2018 [facility] Temperature Oral (F) 97.4 F 12/12/2018 [facility] Systolic (mm Hg) 116 12/12/2018 [facility] Diastolic (mm Hg) 67 12/12/2018 [facility] Respitory Rate 16 12/12/2018 [facility] Heart Rate 85 12/12/2018 [facility] Respitory Rate 16 12/12/2018 [facility] Heart Rate 79 12/12/2018 [facility] Temperature Oral (F) 97.9 F 12/12/2018 [facility] Systolic (mm Hg) 109 12/12/2018 [facility] Diastolic (mm Hg) 56 12/12/2018 [facility] BMI Calculated 22.99 12/11/2018 [facility] Weight 55.199 12/11/2018 [facility] Height 154.94 cm 12/11/2018 [facility] Systolic (mm Hg) 128 11/22/2015 [facility] Diastolic (mm Hg) 71 11/22/2015 [facility] Respitory Rate 16 11/22/2015 [facility] Heart Rate 94 11/22/2015 [facility] Temperature Oral (F) 98.2 F 11/22/2015 [facility] Systolic (mm Hg) 130 11/22/2015 [facility] Diastolic (mm Hg) 63 11/22/2015 [facility] Heart Rate 104 11/22/2015 [facility] Respitory Rate 16 11/22/2015 [facility] Temperature Oral (F) 98.6 F 11/22/2015 [facility] Respitory Rate 16 11/22/2015 [facility] Temperature Oral (F) 98.4 F 11/22/2015 [facility] Systolic (mm Hg) 125 11/22/2015 [facility] Diastolic (mm Hg) 65 11/22/2015 [facility] Heart Rate 101 11/22/2015 [facility] Height 154.94 cm 11/20/2015 [facility] Weight 56.818 11/20/2015 [facility] BMI Calculated 23.67 11/20/2015 [facility] BMI Calculated 23.67 11/20/2015 [facility] Height 154.94 cm 11/20/2015 [facility] Weight 56.818 11/20/2015 [facility] Systolic (mm Hg) 131 08/25/2014 [facility] Respitory Rate 20 08/25/2014 [facility] Heart Rate 64 08/25/2014 [facility] Temperature Oral (F) 97.9 F 08/25/2014 [facility] Diastolic (mm Hg) 54 08/25/2014 [facility] Respitory Rate 20 08/25/2014 [facility] Temperature Oral (F) 98.3 F 08/25/2014 [facility] Diastolic (mm Hg) 64 08/25/2014 [facility] Systolic (mm Hg) 132 08/25/2014 [facility] Temperature Oral (F) 97.8 F 08/25/2014 [facility] Diastolic (mm Hg) 54 08/25/2014 [facility] Respitory Rate 20 08/25/2014 [facility] Systolic (mm Hg) 130 08/25/2014 [facility] Height 154.94 cm 08/24/2014 [facility] Weight 49.091 08/24/2014 [facility] BMI Calculated 20.45 08/24/2014 [facility] Temperature Oral (F) 97.9 F 11/16/2013 [facility] Respitory Rate 16 11/16/2013 [facility] Heart Rate 66 11/16/2013 [facility] Diastolic (mm Hg) 64 11/16/2013 [facility] Systolic (mm Hg) 114 11/16/2013 [facility] Diastolic (mm Hg) 53 11/16/2013 [facility] Systolic (mm Hg) 114 11/16/2013 [facility] Temperature Oral (F) 98.1 F 11/16/2013 [facility] Heart Rate 63 11/16/2013 [facility] Respitory Rate 16 11/16/2013 [facility] Respitory Rate 16 11/16/2013 [facility] Systolic (mm Hg) 128 11/16/2013 [facility] Diastolic (mm Hg) 62 11/16/2013 [facility] Heart Rate 60 11/16/2013 [facility] Temperature Oral (F) 98.3 F 11/16/2013 [facility] Weight 47.273 11/15/2013 [facility] BMI Calculated 19.69 11/15/2013 [facility] Height 154.94 cm 11/15/2013 [facility] Height 154.94 cm 11/15/2013 [facility] BMI Calculated 19.69 11/15/2013 [facility] Weight 47.273 11/15/2013 [facility] Encounters Location Location Details Encounter Type Encounter Number Reason For Visit Attending Provider ADM Date DC Date Status Source [facility] [place] [facility] [id number] _MAPID:[id number] Bridget Morgan 10/07/2013 10/08/2013 [facility] [place] [facility] [place] [facility] [id number] _MAPID:[id number] Bridget Morgan 10/17/2013 10/18/2013 [facility] [place] AUDIT [id number] 11/03/2013 11/03/2013 [facility] OBS Observation Patient [id number] Nighat Jinny 11/15/2013 11/16/2013 [facility] Outpatient [id number] [facility] 03/15/2014 03/16/2014 [facility] [place] [facility] [id number] Bridget Morgan 05/15/2014 05/16/2014 [facility] [place] [facility] Outpatient [id number] [facility] 06/21/2014 06/22/2014 [facility] Bedded Outpatient [id number] Yeisonkevinsahara Jinny 08/24/2014 08/25/2014 [facility] [place] [facility] [id number] Jw Freeman 09/11/2014 09/12/2014 [facility] [place] [facility] [place] [facility] [id number] Jw Freeman 04/12/2015 04/13/2015 [facility] [place] [facility] [place] [facility] [id number] Bridget Blairerte 07/25/2015 07/26/2015 [facility] [place] [facility] Outpatient [id number] Jw Freeman 08/18/2015 08/19/2015 [facility] Outpatient [id number] Jw Freeman 11/19/2015 11/20/2015 [facility] Inpatient [id number] Jw Freeman 11/19/2015 11/22/2015 [facility] [place] [facility] [id number] Bridget SorensonCathy 04/04/2016 04/05/2016 [facility] [place] [facility] [place] [facility] [id number] Bridget Cathy 04/21/2016 04/22/2016 [facility] [place] [facility] [place] [facility] [id number] Jw Larsenpta 10/23/2016 10/24/2016 [facility] [place] [facility] [place] [facility] [id number] Jw Freeman 10/26/2017 10/27/2017 [facility] [place] [facility] [place] [facility] [id number] Bridget Cathy 02/23/2018 02/24/2018 [facility] [place] [facility] [place] [facility] [id number] Jw Freeman 11/23/2018 11/24/2018 [facility] [place] [facility] Inpatient [id number] Parker Singh 12/11/2018 12/12/2018 [facility] Procedures Procedure Code Date Perfomer Comments Source Percutaneous coronary intervention<sup>1</sup> [id number] 11/14/2013 stenting of LAD ALEJANDRA Hayder ennis,[facility] Partial hysterectomy [id number] [facility] Procedure on elbow joint [id number] [facility] Assessment and Plan Assessment and Plan Date Source Extracted from:Title: General Admission H&P * Author: Johnny Cunha MD Date: 12/11/18 Impression and Plan 78-year-old female with a [...] per unit policy Repeat labs in a.m. Dietheart healthy Continue telemetry for now as I [...] ICU. We will also get pulmonary evaluation. 12/12/2018 [facility] Plan of Care No Data Provided for This Section Social History Social History Date Source Social History TypeResponse Alcohol Current, Type Liquor. Frequency: 3-5 times per week. Last use: 12/08/18. Previous treatment: None. Alcohol use interferes with work or home: No. Drinks more than intended: No. Others hurt by drinking: No. Ready to change: No. Household alcohol concerns: No. Smoking Status Former smoker; Exposure to Tobacco Smoke None; Cigarette Smoking Last 365 Days No; Reg Smoking Cessation Counseling No entered on: 12/11/18 12/11/2018 [facility] Social History TypeResponse Alcohol Never Smoking Status Former smoker; Exposure to Tobacco Smoke None; Cigarette Smoking Last 365 Days No; Reg Smoking Cessation Counseling No entered on: 11/19/15 12/20/2013 ALEJANDRA Hobson Smoking Cigarettes For 60 Pack-years (3 05.1); (Active) Current Every Day Smoker (305.1); (Active) No History of Alcohol Use (Denied) No History of Drug Use (Denied) 11/03/2013 [facility] Family History Value Date S ource No Family history of Family Health Statu s (Denied) 11/03/2013 [facility] Advance Directives Order Name Results Value Date Source Advance Directives Advance Dir ectives No Advance Directives available. 11/03/2013 [facility] Functional Status No Data Provided for This Section
--- OUTSIDE RECORDS SUMMARY | 2019-12-20 06:41 | XMS REPORT ---
Author Author [facility] Organization [facility] Address Unknown Phone Unavailable Care Team Providers Care Senior Analyst Market Intelligence Name Role Phone NABIL VILLAVICENCIO Unavailable Unavailable Problems This patient has no known problems. Allergies, Adverse Reactions, Alerts This patient has no known allergies or adverse reactions. Medications This patient has no known medications. Encounters Start Date/Time End Date/Time Encounter Type Admission Type [facility] Care Department Encounter ID 2018-12-11 17:01:00 Inpatient [facility] [id number] Results Test Description Test Time Test Comments Text Results Atomic Results Result Comments CHEST 2 VIEWS 2019-12-16 14:37:00 [facility] [address] [address] Patient Name: JOHNNIE HURTADO MR #: [id number] : 1940 Age/Sex: 79/F Req #: [id number] Adm Physician: Ordered by: NABIL VILLAVICENCIO DP Report #: [id number] Location: OR Room/Bed: Procedure: [id number] DX/CHEST 2 VIEWS Exam Date: Exam Time: REPORT STATUS: Signed X-ray chest PA and lateral History: Preop Comparison: None. Findings: Status post CABG procedure. Coronary artery stent visualized. Mediastinal contours otherwise unremarkable. Heart size normal. There is no pleural effusion or pneumothorax. There is left apical p leural thickening with hilar retraction. This raises the possibility of granulomatous disease. Lung husain show changes of COPD but no other focal disease. Visualized skeleton shows osteopenia. Upper abdomen unremarkable. Impression: No acute cardiopulmonary disease. Comparison with old studies to document stability of the left apical lung disease and hilar retraction. A CT of the chest may be performed for further evaluation. Signed by: Barbie Ely MD on 12/16/2019 2:39 PM Dictated By: BARBIE ELY MD 1439 Transcribed By: PRESLEY on 12/16/19 1439 COPY TO: NABIL VILLAVICENCIO DPM SCR MAMM BILATERAL SHAN CAD DIGITAL 2018-10-11 17:47:44 - SCR MAMM BILATERAL SHAN CAD DIGITALBILATERAL DIGITAL SCREENING MAMMOGRAM 3D/2D WITH CAD: 10/11/2018CLINICAL: Asymptomatic. Digital breast tomosynthesis was performed in addition to routine CC and MLO views. Current mammographic images were evaluated by either a [employer] M-Vu or a [employer] CR[employer] ACQUISITION[employer] CAD (computer aided detection system). Comparison is made to exams dated 10/08/2017 mammogram, 10/07 mammogram, and 10/04/2015 mammogram - [facility]. The tissue of both breasts is heterogeneously dense. This may lower the sensitivity of mammography. There are benign vascular calcifications and calcifications in both breasts. No suspicious mass, architectural distortion, malignant type calcification, or lymph node abnormality detected. Breast architecture is stable compared to prior exams.IMPRESSION: BENIGNThere is no mammographic evidence of malignancy. Resume annual screening mammography in one year. Galilea levy/gail:10/11/2018 17:47:44 Flattening Press Operator: Zenaida MARIE, [facility] sent: BIRADS 1-2 Normal Mammogram BI-RADS: 2 Benign
--- NOTE | 2019-12-20 07:18 | NUR ---
SPIRITUAL CARE - Pre-Surgery Assessment: Pt in bed. Pt's at bedside. Pt reported supportive attention from family and friends. Intervention: I provided pastoral presence, hospitality, and empathic listening. Acquainted pt with availability of wire twister while hospitalized. Outcome: Pt expressed appreciation for visit. No need for follow up indicated at this time. ROMÁN Burlesonlain Spiritual Care Department O: [phone]
[2019-12-20 10:30] VITALS: BP 140/60
--- NOTE | 2019-12-20 13:08 | Operative Report ---
DATE OF PROCEDURE: 12/20/2019 SURGEON: Amelia Cardona DPM Pre Op Diagnosis: Hammer Toe 5th Left Exostosis 5th Left Post op Diagnosis: Same Procedure: Arthroplasty 5th Left LIAISON INSPECTION LABORATORY ASSISTANT: None. ANESTHESIA: General anesthetic with a local block consisting of 5 mL of 0.5 Marcaine plain. MATERIALS: None. COMPLICATIONS: None. CONDITION: Stable. TOURNIQUET: Pneumatic ankle tourniquet at 250 mmHg at the ankle. PROCEDURE IN DETAIL: Under mild sedation, the patient was brought to the operating room, placed on the operating table in supine position. Following IV sedation, anesthesia was obtained with a general anesthetic. At this point, the left foot scrubbed, prepped, and draped in the usual aseptic manner. The pneumatic ankle tourniquet was inflated to 250 minutes mmHg and the leg was lowered to the table. Attention was directed to the lateral aspect of the left foot where a linear incision was made overlying the area of the hammertoe and the exostosis in the area of pressure. The incision was deepened down to the level of the capsule. Linear capsulotomy was performed. The extensor tendon was transverse through and through. The phalanx was exposed utilizing an oscillating saw. The distal end of the phalanx was removed. The area was then made smooth. The area was then flushed with copious amount of normal sterile saline solution. The area was then closed, closing the deepest layer with 3-0 Vicryl, then 4-0 nylon. The area was then dressed with sterile compressive dressing consisting of Adaptic, 4x4s, Kerlix, and Don bandage. The tourniquet was deflated. There was noted to be hyperemic response to all the digits. The patient tolerated the procedure and anesthesia well without complications, was transported to recovery room with vital signs stable and vascular status intact to both feet. The patient will be discharged home when she meets criteria. She was given instructions to be partial weightbearing, to elevate the foot to ice and follow up with me in the office; to call the office if any questions, concerns, or new problems arise. Amelia Cardona DPM ER/MODL /[id number] NAOMIE
== END | disposition home or self-care (01) ==
LOC: OR 06:20
PROVIDERS: ATTEND Podiatrist Foot & Ankle Surgery
DX: M20.42 Other hammer toe(s) (acquired), left foot (principal); M21.612 Bunion of left foot; J45.909 Unspecified asthma, uncomplicated; I25.10 Atherosclerotic heart disease of native coronary artery without angina pectoris; G43.909 Migraine, unspecified, not intractable, without status migrainosus; I10 Essential (primary) hypertension; Z01.810 Encounter for preprocedural cardiovascular examination; Z01.812 Encounter for preprocedural laboratory examination; Z01.818 Encounter for other preprocedural examination; Z11.59 Encounter for screening for other viral diseases; Z79.02 Long term (current) use of antithrombotics/antiplatelets; Z95.5 Presence of coronary angioplasty implant and graft; Z85.118 Personal history of other malignant neoplasm of bronchus and lung
CPT/HCPCS: 28285; 36415; 71046; 85025; 87635; 93005; J0690; J1100; J2001; J2405; J2704; J2710; J3010